=== PATIENT | female | born 1955 | race Caucasian/White ===

== ENCOUNTER 2020-01-17 07:44 | Outpatient (CLI) | payer OTHER, SELFPAY ==
--- NOTE | ~2020-01-17 | MR_ITS ---
EXAMINATION: MR lumbar spine wo con DATE: 01/17/2020 08:25 INDICATION: Lumbar nerve root impingement. Lumbar spondylolisthesis. TECHNIQUE: Magnetic resonance imaging (MRI) of the lumbar spine was performed without intravenous con trast. Sequences included sagittal T2-weighted FSE, sagittal T2-weighted FS FSE, sagittal T1-weighted FSE, and axial T2-weighted FSE. COMPARISON: Lumbar spine MRI 11/19/2012 FINDINGS: There is 4 degrees levocurvature of lumbar spine. There is 3 mm retrolisthesis of L2 on L3 and L3 on L4. Vertebral body heights are normal. There is moderately decreased disc height at L2-L3 a nd mildly decreased disc height at L3-L4. The distal spinal cord signal intensity is normal. The conu s medullaris is at L1. The following disc levels are specifically discussed: L1-L2: The disc is bulging. There is severe bilateral facet joint osteoarthritis. There is mild bilat eral neural foraminal stenosis. There is mild central canal stenosis. L2-L3: The disc is bulging and has an annular fissure. There is severe bilateral facet joint osteoart hritis. There is mild bilateral neural foraminal stenosis. There is mild central canal stenosis. L3-L4: The disc is bulging and has an annular fissure. There is severe bilateral facet joint osteoart hritis. There is hypertrophy of the ligamentum flavum. There is moderate bilateral neural foraminal s tenosis. There is mild central canal stenosis. L4-L5: The disc does not extend beyond the endplate margin. There is severe bilateral facet joint ost eoarthritis. There is mild bilateral neural foraminal stenosis. There is no central canal stenosis. L5-S1: The disc does not extend beyond the endplate margin. There is severe bilateral facet joint ost eoarthritis. There is mild bilateral neural foraminal stenosis. There is no central canal stenosis. IMPRESSION: 1. Moderate lumbar spondylosis, worsened from 11/19/2012. Reviewed, dictated and finalized at location A. ICATIONS SYSTEM ANALYST
== END 2020-01-17 07:45 | disposition home or self-care (01) ==
LOC: ANHIMG 07:45
PROVIDERS: PCP Registered Nurse; Visit Provider Registered Nurse
DX: M47.26 Other spondylosis with radiculopathy, lumbar region (principal); M43.19 Spondylolisthesis, multiple sites in spine; M79.604 Pain in right leg; M79.605 Pain in left leg; R29.898 Other symptoms and signs involving the musculoskeletal system
CPT/HCPCS: 72148

== ENCOUNTER 2020-05-02 09:00 | Outpatient (CLI) | payer OTHER, SELFPAY ==
--- NOTE | ~2020-05-02 | XR_ITS ---
XR_CERV2-3V_CR DATE: 05/02/2020 09:28 INDICATION: Generalized cervical pain TECHNIQUE: AP, open-mouth, lateral, swimmer views COMPARISON: 09/17/2010 cervical spine FINDINGS: C1 and C2 are normally aligned and the odontoid process is intact. There is mild anterolisthesis at C4-5. There is severe degenerative disc disease at C5-6, C6-7. There is mild anterolisthesis at C7-T1. There is degenerative change at the apophyseal joints throughout the cervical spine. Uncovertebral uriel int spurring is noted in the mid and lower cervical spine. IMPRESSION: Extensive degenerative changes of cervical spine Reviewed, dictated and finalized at Location A. Reviewed, dictated and finalized at location A.
== END 2020-05-02 09:01 | disposition home or self-care (01) ==
LOC: ANHIMG 09:07
PROVIDERS: PCP Registered Nurse; Visit Provider Nurse Practitioner
DX: M54.2 Cervicalgia (principal)
CPT/HCPCS: 72040

== ENCOUNTER 2020-09-19 12:18 | Outpatient (NON) | payer OTHER, SELFPAY ==
[2020-09-19 22:30] LABS: SARS-CoV-2 RNA PCR Negative
== END 2020-09-19 12:19 ==
PROVIDERS: PCP Registered Nurse; Visit Provider Registered Nurse
DX: Z20.828 Contact with and (suspected) exposure to other viral communicable diseases (principal); J02.9 Acute pharyngitis, unspecified; R51.9 Headache, unspecified; R43.2 Parageusia; R43.0 Anosmia
CPT/HCPCS: 87635; C9803; U0003

== ENCOUNTER 2022-03-17 00:30 | Day surgery (SDC) | payer MEDICAID, SELFPAY ==
--- NOTE | 2022-03-16 16:47 | PM.HPGS ---
History of Present Illness History of Present Illness Consent: Risks, benefits, and alternatives have been discussed and questions answered. Patient agrees to proceed with procedure. Chief complaint: family hx of colon ca Narrative: Jaclyn Combs is a 66 year old female Was referred for colon cancer screening. Two of her brothers had colon cancer Review of Systems Review of Systems: All systems reviewed & are unremarkable except as noted in HPI and below PMFSH Past Medical History Medical History Anxiety Arthritis HTN (hypertension) Hyperlipidemia Obesity MARILEE on CPAP Social History Social History Smoking status: Never smoker Alcohol intake: never Substance use: never Substance use type: does not use Living arrangements: alone Spiritual care concerns: No Meds Home Medications and Allergies Home Medications Medication Instructions Recorded Confirmed Type albuterol sulfate 1 - 2 puff INHALATION Q4-6H PRN 03/09/22 03/09/22 History alprazolam 1 mg PO TID 03/09/22 03/17/22 History duloxetine 30 mg PO DAILY 03/09/22 03/09/22 History duloxetine 60 mg PO DAILY 03/09/22 03/09/22 History lisinopril 10 mg PO DAILY 03/09/22 03/09/22 History loperamide 2 mg PO DIRECTED PRN 03/09/22 03/09/22 History ondansetron HCl 4 mg PO PRN PRN 03/09/22 03/09/22 History pravastatin 10 mg PO DAILY 03/09/22 03/09/22 History zolpidem 10 mg PO HS PRN 03/09/22 03/09/22 History Allergies Allergy/AdvReac Type Severity Reaction Status Date / Time levofloxacin Allergy Severe Anaphylaxis Verified 03/17/22 10:02 Penicillins Allergy Intermediate Rash Verified 03/17/22 10:02 Exam Const: General: alert Orientation/consciousness: patient oriented x3 Resp: Auscultation: clear to auscultation bilaterally Cardio: Rhythm: regular rhythm GI: GI Palp: Yes Soft to palpation and No Tenderness to palpation present (GI) Neuro: General: patient oriented x3 Assessment and Plan Assessment and plan (1) Colon cancer screening: Code(s): Z12.11 - Encounter for screening for malignant neoplasm of colon Status: Acute Assessment and Plan: Colonoscopy with possible biopsy or polypectomy or cautery or injection of substances.
--- NOTE | 2022-03-17 09:02 | WPDANESEPPF ---
Anes - Initial Pre Proc Eval Procedure: Operation Date: 03/17/22 11:15 Proposed Procedures p Screening Colonoscopy - Emiliano Villeda MD Date/Time: 03/17/22 09:02 Surgeon: Emiliano Villeda MD Pre Op Diagnosis: family hx of colon ca Patient Data Age: 66 Gender: F Height: 1.6 m Weight: 77 kg Allergies Allergy/AdvReac Type Severity Reaction Status Date / Time levofloxacin Allergy Severe Anaphylaxis Verified 03/17/22 10:02 Penicillins Allergy Intermediate Rash Verified 03/17/22 10:02 Home Medications Medication Instructions Recorded Confirmed Type albuterol sulfate 1 - 2 puff INHALATION Q4-6H PRN 03/09/22 03/09/22 History alprazolam 1 mg PO TID 03/09/22 03/17/22 History duloxetine 30 mg PO DAILY 03/09/22 03/09/22 History duloxetine 60 mg PO DAILY 03/09/22 03/09/22 History lisinopril 10 mg PO DAILY 03/09/22 03/09/22 History loperamide 2 mg PO DIRECTED PRN 03/09/22 03/09/22 History ondansetron HCl 4 mg PO PRN PRN 03/09/22 03/09/22 History pravastatin 10 mg PO DAILY 03/09/22 03/09/22 History zolpidem 10 mg PO HS PRN 03/09/22 03/09/22 History Patient hx anesthesia problems: none Family hx anesthesia problems: none Results Review: All pre-operative results and documents have been reviewed as part of the pre-operative evaluation. [facility] [place] Past Medical History Medical History Anxiety Arthritis HTN (hypertension) Hyperlipidemia Obesity MARILEE on CPAP Social History Social History Smoking status: Never smoker Alcohol intake: never Substance use: never Substance use type: does not use Living arrangements: alone Spiritual care concerns: No Anes - Eval Final PreProcedure Day of Procedure 03/17/22 09:02 Patient weight: obese Heart: regular rate and rhythm Lungs: clear to auscultation and normal air movement Airway: Mallampati scale class II Neurological: alert and oriented Last oral intake: >/= 8 hours ASA classification: III Emergent: no Anesthetic plan: proceed Anesthesia type and monitoring: general GIVS Results Review: All pre-operative results and documents have been reviewed as part of the pre-operative evaluation. Informed Consent: The patient's anesthetic plan and its attendant risks and benefits were discussed with the patient/family/POA. Questions were solicited and answers provided to the satisfaction of the patient/family/POA.
[2022-03-17 10:04] VITALS: BP 123/75; PULSE 89; RESP 18; TEMP 36.8; O2SAT 98
[2022-03-17] MEDS: LACTATED RINGERS 1,000 ML 150 ML IV CONT (10:14)
[2022-03-17 10:53] VITALS: BP 107/69; PULSE 72; RESP 16; O2SAT 99
[2022-03-17 11:03] VITALS: BP 118/61; PULSE 78; RESP 19; O2SAT 99
[2022-03-17 11:13] VITALS: BP 146/93; PULSE 74; RESP 17; O2SAT 99
== END 2022-03-17 11:23 | disposition home or self-care (01) ==
PROVIDERS: PCP Registered Nurse; Visit Provider Internal Medicine Gastroenterology
PROC: 0DJD8ZZ Inspection of Lower Intestinal Tract, Via Natural or Artificial Opening Endoscopic (ICD-10-PCS; CPT 45378; principal; 2022-03-17 11:15)
DX: Z12.11 Encounter for screening for malignant neoplasm of colon (principal); K64.8 Other hemorrhoids; Z80.0 Family history of malignant neoplasm of digestive organs; I10 Essential (primary) hypertension; E78.5 Hyperlipidemia, unspecified; G47.33 Obstructive sleep apnea (adult) (pediatric); F41.9 Anxiety disorder, unspecified; E66.9 Obesity, unspecified; Z68.31 Body mass index [BMI] 31.0-31.9, adult; Z79.51 Long term (current) use of inhaled steroids
CPT/HCPCS: 45380; 88305; J2704; J7120

== ENCOUNTER 2022-03-29 11:05 | Emergency (ER) | payer MEDICAID, SELFPAY ==
--- NOTE | ~2022-03-29 | XR_ITS ---
EXAMINATION: XR knee RT min 4V DATE: 03/29/2022 11:43 INDICATION: Right knee instability and pain TECHNIQUE: Four views of the right knee were obtained. COMPARISON: None. FINDINGS: Alignment is normal. No fracture or osteochondral lesion. There is moderate tricompartmenta l osteoarthritis. A small joint effusion is present. Soft tissues are unremarkable. IMPRESSION: 1. Moderate osteoarthritis without acute osseous abnormality. Reviewed, dictated and finalized at location A.
[2022-03-29 11:19] VITALS: BP 135/85; PULSE 86; RESP 18; TEMP 36.8; O2SAT 100
--- NOTE | 2022-03-29 11:19 | ED.EXTPRO ---
HPI - Extremity Problem General Chief complaint: Extremity Injury, Lower Stated complaint: Right leg Pain Time Seen by Provider: 03/29/22 11:19 Source: patient, RN notes reviewed and old records reviewed Mode of arrival: ambulatory Limitations: no limitations History of Present Illness HPI Narrative: 66-year-old female presents to [facility] with complaints of right knee pain and swelling for several weeks. States she has not been able to make an appointment with her primary or Ortho due to personal issues. Patient had her left knee replaced several years ago. No treatment prior to arrival. States her knee keeps giving out. Head gave out twice yesterday once landing on the bed and wants landing against a counter. Normally does not have to use a cane. Related Data Home Medications Medication Instructions Recorded Confirmed alprazolam 1 mg PO TID 03/09/22 03/29/22 duloxetine 30 mg PO DAILY 03/09/22 03/29/22 duloxetine 60 mg PO DAILY 03/09/22 03/29/22 lisinopril 10 mg PO DAILY 03/09/22 03/29/22 ondansetron HCl 4 mg PO PRN PRN 03/09/22 03/29/22 pravastatin 10 mg PO DAILY 03/09/22 03/29/22 zolpidem 10 mg PO HS PRN 03/09/22 03/29/22 Allergies Allergy/AdvReac Type Severity Reaction Status Date / Time levofloxacin Allergy Severe Anaphylaxis Verified 03/29/22 11:52 Penicillins Allergy Intermediate Rash Verified 03/29/22 11:52 Review of Systems Review of Systems: All systems reviewed & are unremarkable except as noted in HPI and below Constitutional: Constitutional: Reports no additional constitutional complaints, Denies chills and Denies fever(s) Eyes: Eyes: Reports no additional eye complaints ENT: Reports system reviewed and no additional complaints, except as documented Cardiovascular: Cardiovascular: Reports no additional cardiovascular complaints Respiratory: Respiratory: Reports no additional respiratory complaints Musculoskeletal: Musculoskeletal: Reports as per HPI, Reports abnormal gait (Limp), Reports arthralgias (Right knee), Reports joint swelling (Right knee) and Reports stiffness Integumentary/Breasts: Skin/Breast: Reports system reviewed and no additional complaints, except as docu Neurologic: Reports system reviewed and no additional complaints, except as documented Psychiatric: Psychiatric: Reports no additional psychiatric complaints Allergic/Immunologic: Allergic/Immunologic: Reports no additional allergic/immunologic complaints PMFSH Past Medical History Medical History (Updated 03/29/22 @ 11:54 by Roseline Gastleum APRN) Anxiety Arthritis HTN (hypertension) Hyperlipidemia Obesity MARILEE on CPAP Surgical History Surgical History (Updated 03/29/22 @ 19:03 by Roseline Gastelum APRN) History of left knee replacement Social History Social History Smoking status: Never smoker Alcohol intake: never Substance use: never Substance use type: does not use Spiritual care concerns: No Comments At the time of my signature, I reviewed and agree with the nursing past medical, surgical, social, and family history. There is no relevant family history pertinent to the patient complaint. Exam Const: General: cooperative, no acute distress, alert and ill appearing chronically Nutritional Appearance: well nourished Orientation/consciousness: patient oriented x3 Limitations: no limitations HENMT: Head: normal to inspection Ears: external ears normal Eyes: Pupils: Equal, round and reactive pupils present Neck: Neck: normal visual inspection, no lymphadenopathy and no meningeal signs Chest: Chest palpation & inspection: normal inspection of the chest Resp: Effort & Inspection: normal respiratory effort Auscultation: clear to auscultation bilaterally Cardio: Rate: regular rate Rhythm: regular rhythm : General: Yes no CVA tenderness Back/Spine/Pelvis: Back: no CVA tenderness Skin: General skin exam: normal color Rashe
== END 2022-03-29 12:00 | disposition home or self-care (01) ==
PROVIDERS: Emergency Provider Nurse Practitioner; PCP Registered Nurse
DX: M25.461 Effusion, right knee (principal); M17.11 Unilateral primary osteoarthritis, right knee; I10 Essential (primary) hypertension; E78.5 Hyperlipidemia, unspecified
CPT/HCPCS: 73564; 99213; G0463

== ENCOUNTER 2022-04-25 10:42 | Outpatient (CLI) | payer MEDICAID, SELFPAY ==
--- NOTE | ~2022-04-25 | MR_ITS ---
EXAMINATION: MR lumbar spine wo con DATE: 04/25/2022 11:44 INDICATION: Right leg weakness. TECHNIQUE: Magnetic resonance imaging (MRI) of the lumbar spine was performed without intravenous con trast. Sequences included sagittal T2-weighted FSE, sagittal T2-weighted FS FSE, sagittal T1-weighted FSE, and axial T2-weighted FSE. COMPARISON: Lumbar spine MRI 01/17/2020 FINDINGS: There is 3 mm retrolisthesis of L2 on L3 and L3 on L4. Vertebral body heights are normal. T here is moderately decreased disc height at L2-L3 and L3-L4. There is ligamentum flavum hypertrophy a t the disc levels from L1-L2 through L4-L5. The distal spinal cord signal intensity is normal. The co nus medullaris is at T12-L1. The following disc levels are specifically discussed: L1-L2: The disc is bulging. There is severe bilateral facet joint osteoarthritis. There is mild bilat eral neural foraminal stenosis. There is mild central canal stenosis. L2-L3: The disc is bulging. There is severe bilateral facet joint osteoarthritis. There is mild bilat eral neural foraminal stenosis. There is mild central canal stenosis. L3-L4: The disc is bulging and has an annular fissure. There is severe bilateral facet joint osteoart hritis. There is moderate bilateral neural foraminal stenosis. There is mild central canal stenosis. L4-L5: The disc does not extend beyond the endplate margin. There is severe bilateral facet joint ost eoarthritis. There is mild left neural foraminal stenosis. There is no central canal stenosis. L5-S1: The disc does not extend beyond the endplate margin. There is severe bilateral facet joint ost eoarthritis. There is mild bilateral neural foraminal stenosis. There is no central canal stenosis. IMPRESSION: 1. Moderate lumbar spondylosis, stable from 01/17/2020. Reviewed, dictated and finalized at location A.
== END 2022-04-25 10:43 | disposition home or self-care (01) ==
PROVIDERS: PCP Registered Nurse; Visit Provider Registered Nurse
DX: R20.2 Paresthesia of skin (principal); M47.817 Spondylosis without myelopathy or radiculopathy, lumbosacral region; M48.07 Spinal stenosis, lumbosacral region; R29.898 Other symptoms and signs involving the musculoskeletal system; M48.061 Spinal stenosis, lumbar region without neurogenic claudication
CPT/HCPCS: 72148

== ENCOUNTER 2023-02-09 07:23 | Observation (INO) | payer MEDICARE, MEDICAID, SELFPAY ==
[2023-02-09] VITALS (16 sets, daily range): BP systolic 122–157; BP diastolic 55–85; PULSE 64–91; RESP 12–24; TEMP 36.4; O2SAT 84–100; BMI 36.3
--- NOTE | 2023-02-09 | ECHO_ITS ---
Patient Info Name: Jaclyn Combs Age: 67 years : 1955 Gender: Female Ht: 62 in Wt: 198 lbs BSA: 2.03 m2 HR: 81 bpm BP: 122 / 55 mmHg Heart Rhythm: Sinus Rhythm Technical Quality: Fair Exam Date: 02/09/2023 1:31 PM [facility] Room: [facility] Patient Status: Inpatient Admit Date: 02/09/2023 Staff Ordering Physician: Christine Mccollum NP Manufacturing Quality Engineer: Muriel Munoz RDCS Attending Provider: Michael Dutton MD Referring Physician: Chun ISAAC; Exam Type: CA echo doppler color flow Study Info Indications - CHEST PAIN Complete two-dimensional, color flow and Doppler transthoracic echocardiogram is performed. Summary 1. Complete two-dimensional, color flow and Doppler transthoracic echocardiogram is performed. 2. Left ventricular chamber dimension is normal. 3. Left ventricular systolic function is normal, estimated at 65-70%. 4. There is mildly increased left ventricular wall thickness. 5. The left ventricular diastolic function is grade I diastolic dysfunction. 6. Right ventricular systolic function is normal. 7. There is mild aortic atherosclerosis. 8. No significant valvular disease. Left Ventricle Left ventricular chamber dimension is normal. Left ventricular systolic function is normal, estimated at 65-70%. There is mildly increased left ventricular wall thickness. The left ventricular diastolic function is grade I diastolic dysfunction. Global longitudinal strain is normal at -19 %. Right Ventricle Right ventricular chamber dimension is normal. Right ventricular systolic function is normal. Left Atria Left atrial chamber dimension is normal. Right Atria Right atrial chamber dimension is normal. Atrial Septum Intact interatrial septum visualized by color flow imaging. Aortic Valve The aortic valve is trileaflet. There is mild aortic valve sclerosis. There is no aortic valve stenosis. There is no aortic valve regurgitation. Pulmonic Valve The pulmonic valve is not well visualized. Mitral Valve The mitral valve has normal leaflets. There is no mitral valve stenosis. There is trace mitral valve regurgitation. Tricuspid Valve There is no significant tricuspid valve stenosis. There is trace tricuspid valve regurgitation. Pericardium/Pleural The pericardium appears epicardial fat pad. There is no pericardial effusion. Inferior Vena Cava Normal inferior vena cava with >50% collapse upon inspiration consistent with normal right atrial pressure, 3 mmHg. Aorta The aortic root size at the sinus of Valsalva is normal. There is mild aortic atherosclerosis. Left Ventricular Outflow Tract Name Value Normal LVOT 2D LVOT Diameter 2.0 cm LVOT Doppler LVOT Peak Gradient 4 mmHg LVOT Mean Gradient 3 mmHg LVOT VTI 22 cm LVOT VTI/AV VTI Ratio 0.8 LVOT Stroke Volume 69 ml LVOT CO 14.9 l/min LVOT CI 7.3 l/min/
--- NOTE | ~2023-02-09 | NM_ITS ---
EXAMINATION: NM pulmonary perfusion DATE: 02/10/2023 14:38 INDICATION: Chest pain. Elevated d-dimer. TECHNIQUE: Senior Data Analyst scintigraphic images of the chest were obtained in anterior and posterior projection s to assess residual activity from a cardiac stress perfusion study performed one day prior. 5.3 mCi Tc-99m MAA was administered by intravenous route. Scintigraphic images of the chest were obtained. COMPARISON: None FINDINGS: There is some residual activity scattered throughout the colon in the visualized upper abdomen. There is relatively homogeneous perfusion throughout the lungs. No perfusion defects identified. IMPRESSION: 1. Normal perfusion imaging of the lungs. Low probability for pulmonary embolism. Reviewed, dictated and finalized at location L. IMPRESSION: 1. Normal perfusion imaging of the lungs. Low probability for pulmonary emboli sm.
--- NOTE | ~2023-02-09 | NM_ITS ---
EXAMINATION: NM saji stress w perfusion DATE: 02/09/2023 16:12 INDICATION: Chest pain. TECHNIQUE: Rest images were obtained following intravenous administration of 10.5 mCi Tc99m tetrofosm in (Myoview). The patient was infused intravenously with Lexiscan (regadenoson). Then, 33.9 mCi Tc99m tetrofosmin (Myoview) was administered intravenously, and stress images were obtained. Data was [place] nstructed into short axis and horizontal and vertical long axis SPECT images. Gated SPECT images were also obtained. COMPARISON: Myocardial perfusion imaging 09/17/2010 FINDINGS: There is no definite reversible or fixed perfusion abnormality to suggest ischemia or infar ction. There is no segmental wall motion abnormality. Left ventricular ejection fraction measures > 70%. IMPRESSION: 1. No definite ischemia or infarct. 2. Normal left ventricular ejection fraction measuring >70%. Reviewed, dictated and finalized at location A.
--- NOTE | ~2023-02-09 | XR_ITS ---
Clinical Indication: Pain PA and lateral views of the chest: Comparison: 04/25/2019 Findings: The lungs are clear, without evidence of focal consolidation or pleural effusion. Cardiome diastinal silhouette is within normal limits. DISH of the spine again noted. Impression: Clear lungs. Reviewed, dictated and finalized at location . Impression: Clear lungs.
--- NOTE | ~2023-02-09 | US_ITS ---
EXAMINATION:US venous doppler LE BI INDICATION:Leg pain. Elevated d-dimer. TECHNIQUE: Multiple grayscale, color flow and Doppler images of the bilateral lower extremity deep ve nous systems were obtained and reviewed. COMPARISON:No prior studies for comparison. FINDINGS: The common femoral, superficial femoral and popliteal veins demonstrate normal respiratory variation, augmentation and compressibility. Color flow is also seen within the posterior tibial, pe roneal, greater saphenous and profunda veins. IMPRESSION: 1: No lower extremity deep venous thrombosis. Reviewed, dictated and finalized at location A.
--- NOTE | ~2023-02-09 | CT_ITS ---
EXAMINATION: CT brain wo con DATE: 02/11/2023 13:22 INDICATION: Headache. Dizziness. TECHNIQUE: Computed tomography (CT) of the head was performed without intravenous contrast. The mA wa s adjusted according to patient size. Iterative reconstruction technique was employed. The dose-lengt h product was 605.33 mGy-cm. COMPARISON: Head CT 03/10/2016 FINDINGS: There are scattered areas of low attenuation in the cerebral white matter. There is no intr acranial hemorrhage, acute infarction, or abnormal intracranial mass lesion. The ventricles are rosemary l in size. There is mild mucosal thickening in the paranasal sinuses. The mastoid air cells are rosemary l. The orbits are normal. IMPRESSION: 1. Worsened mild nonspecific cerebral white matter disease, which likely represents chronic small ves dom ischemic disease. Reviewed, dictated and finalized at location A. IMPRESSION: 1. Worsened mild nonspecific cerebral white matter disease, which likely repres ents chronic small vessel ischemic disease.
--- NOTE | ~2023-02-09 | CT_ITS ---
EXAMINATION: CT abdomen pelvis wo con DATE: 02/10/2023 14:39 INDICATION: Abdominal pain TECHNIQUE: Computed tomography (CT) of the abdomen and pelvis was performed without intravenous contr ast. Automated exposure control and iterative reconstruction technique were employed. The dose-length product was 539.20 mGy-cm. COMPARISON: 07/25/2019 FINDINGS: Minimal atelectasis at the bilateral lung bases. Heart size is normal. No pericardial or pleural effu manjit. Cholecystectomy clips the gallbladder fossa. Liver, spleen, pancreas, bilateral adrenal glands and right kidney are normal. 2.5 cm left renal cyst. Anatomic variant accessory right renal artery an d retroaortic left renal vein. Bowels are normal with no abnormal wall thickening or obstruction. Pos toperative changes at the tip the cecum consistent with prior appendectomy. A few phleboliths in the pelvis. Bladder is normal. The uterus is not identified and has likely been surgically resected. No f ree intraperitoneal gas or fluid. No pathologically enlarged abdominal or pelvic lymphadenopathy. Mil d to moderate lumbar spondylosis. IMPRESSION: 1. No acute intra-abdominal/pelvic process. Reviewed, dictated and finalized at location L.
--- NOTE | 2023-02-09 07:36 | ECG_ITS ---
Measurements Intervals [place] Rate: 91 P: 66 RI: 183 QRS: -42 QRSD: 64 T: 52 QT: 329 QTc: 406 Interpretive Statements SINUS RHYTHM LEFT AXIS DEVIATION BASELINE ARTIFACT- I, II, III, AVR, AVL, AVF, V1-V6 BORDERLINE ECG NO PREVIOUS ECG AVAILABLE FOR COMPARISON Electronically Signed On 02-09-2023 9:42:00 CDT by Jean-Claude Chong D.O.
--- NOTE | 2023-02-09 07:44 | ED.CHESTPAIN ---
HPI - Chest Pain General Chief Complaint: Chest Pain Stated Complaint: chest pressure Time Seen by Provider: 02/09/23 07:24 History of Present Illness HPI narrative: Patient is a 67-year-old female who presents to the ER with chest pain. Central. Aching. Reports has been ongoing over the last 2 months. She is also developed extreme dyspnea with exertion. No history of COPD or lung disease. Chest pain also worsens with exertion and improves with rest. Patient reports she gets radiation of the discomfort into her right shoulder as well as into her left neck. She is also gotten some intermittent tingling in her left arm. Patient also reports she has had some new sinus congestion with postnasal drip and hoarseness of her voice. No history of NH. Related Data Home Medications Medication Instructions Recorded Confirmed alprazolam 1 mg tablet 1 mg PO TID 03/09/22 02/09/23 duloxetine 30 mg capsule,delayed 30 mg PO DAILY 03/09/22 02/09/23 release duloxetine 60 mg capsule,delayed 60 mg PO DAILY 03/09/22 02/09/23 release lisinopril 10 mg tablet 10 mg PO DAILY 03/09/22 02/09/23 ondansetron HCl 4 mg tablet 4 mg PO Q6H PRN Nausea 03/09/22 02/09/23 pravastatin 10 mg tablet 10 mg PO DAILY 03/09/22 02/09/23 zolpidem 10 mg tablet 10 mg PO HS PRN Insomnia 03/09/22 02/09/23 albuterol sulfate 90 mcg/actuation 2 puff inhalation TID 02/09/23 02/09/23 aerosol inhaler gabapentin 100 mg capsule 100 mg PO TID 02/09/23 02/09/23 Allergies Allergy/AdvReac Type Severity Reaction Status Date / Time levofloxacin Allergy Severe Anaphylaxis Verified 02/09/23 13:08 Penicillins Allergy Intermediate Rash Verified 02/09/23 13:08 Review of Systems Review of Systems: All systems reviewed & are unremarkable except as noted in HPI and below Constitutional: Constitutional: Denies chills, Denies fatigue and Denies fever(s) ENT: Denies nasal congestion and Denies sore throat Cardiovascular: Cardiovascular: Reports chest pain, Denies rapid heart rate and Reports radiating jaw, neck or arm pain Respiratory: Respiratory: Reports cough, Reports dyspnea and Denies wheezing Gastrointestinal: Gastrointestinal: Denies abdominal pain, Denies nausea and Denies vomiting Genitourinary: Genitourinary: Denies nocturia and Denies dysuria [facility] Past Medical History Medical History (Updated 02/09/23 @ 18:12 by Anders Christensen MD) Anxiety Arthritis History of CVA (cerebrovascular accident) History of diverticulitis HTN (hypertension) Hyperlipidemia Obesity MARILEE on CPAP TIA (transient ischemic attack) Surgical History Surgical History (Updated 02/09/23 @ 12:26 by Christine Mccollum NP) H/O repair of rotator cuff tommy History of appendectomy History of left knee replacement History of partial hysterectomy History of total right knee replacement Hx of cholecystectomy S/P tonsillectomy and adenoidectomy Family History Family History Father Aneurysm Heart disease Mother Hypertension Cerebrovascular accident Alzheimer's dementia Sibling Carcinoma of colon 2 brothers Cervical cancer Sister Social History Social History (Updated 02/09/23 @ 14:17 by Christine Mccollum NP) Social History: She 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 Code status full code Smoking packs per day: 2 Smoking cigarettes per day: 40.0 Years smoked: 9 Smoking pack-years: 18.00 Smoking status: Former smoker Tobacco type: cigarettes Second hand tobacco smoke exposure: No Smoking end date: 11/28/74 Alcohol intake: never Substance use: never Substance use type: does not use Lack of Transportation: No Lack of Food: Sometimes True Current Housing: I Have Housing Concerned About Future Housing: No Difficulty Paying Gas/Electric Bills: No Difficulty Paying for Meds: No Currently Unemployed:
[2023-02-09 08:25] LABS: Basophils Percent Auto 0.5 % (0.2-1.2); Eosinophils Absolute Auto 0.2 K/mm3 (0-0.3); Eosinophils Percent Auto 2.3 % (0-4.4); Hematocrit 41.1 % (37.0-47.0); Hemoglobin 13.2 g/dL (12.0-15.0); Immature Granulocyte Absolute 0.02 K/mm3 (0.00-0.031); Immature Granulocyte Percent A 0.2 % (0-0.5); Lymphocytes Absolute Auto 4.02 K/mm3 (0.9-3.2); Lymphocytes Percent Auto 46.7 % (18.3-44.2); Mean Corpuscular HGB Conc 32.1 g/dl (32-36); Mean Corpuscular Hemoglobin 28.3 pg (26-34); Mean Corpuscular Volume 88.2 fl (80-100); Mean Platelet Volume 9.3 fl (7.4-10.4); Monocytes Absolute Auto 0.7 K/mm3 (0.1-0.6); Monocytes Percent Auto 7.9 % (2.6-8.5); Neutrophils Absolute Auto 3.6 K/mm3 (1.3-6.7); Neutrophils Percent Auto 42.4 % (45.5-73.1); Platelet Count Result 298 k/mm3 (150-375); Red Blood Count 4.66 M/mm3 (4.2-5.4); Red Cell Distribution Width 15.1 % (11.5-14.5); White Blood Count 8.6 K/mm3 (4.5-10.0)
[2023-02-09 08:40] LABS: Alanine Aminotransferase 19 U/L (6-35); Albumin Level 4.4 g/dL (3.5-5.1); Alkaline Phosphatase 87 U/L (38-126); Anion Gap 7 mmol/L (8-16); Aspartate Amino Transferase 22 U/L (14-36); Bilirubin,Total 0.6 mg/dL (0.2-1.3); Blood Urea Nitrogen 13 mg/dL (7-17); Calcium 8.9 mg/dL (8.4-10.2); Carbon Dioxide 25 mmol/L (22-30); Chloride 103 mmol/L (98-107); Estimated CRCL calculation 80 ml/min; Estimated Glomerular Filt Rate > 60; Glucose 96 mg/dL (65-110); Lipase 78 U/L (23-300); Potassium 4.1 mmol/L (3.4-5.0); Sodium 135 mmol/L (137-145)
[2023-02-09 08:45] LABS: Prothrombin Time 12.8 Seconds (11.1-14.7)
[2023-02-09 08:46] LABS: Partial Thromboplastin Time 27.7 SECONDS (22.3-36.8)
[2023-02-09 08:51] LABS: Troponin I < 0.012 ng/mL (0.000-0.034)
[2023-02-09] MEDS: ONDANSETRON INJ 4 MG/2 ML VIAL IV PUSH (09:58)
[2023-02-09 11:11] LABS: Troponin I < 0.012 ng/mL (0.000-0.034)
--- NOTE | 2023-02-09 11:21 | PC.NURSE ---
report received from Cindy LLOYD including history and physical and plan of care
--- NOTE | 2023-02-09 12:22 | PM.IMHP ---
H&P: HPI History of Present Illness Date/Time: 02/09/23 12:22 Chief Complaint: Chest pain Narrative: This is a 67-year-old female patient who is complaining of having chest pain. She stated was epigastric and went under both of her breast and radiated to her left neck and right arm. This has been ongoing for the last 2 months. The patient has had some anxiety she recently lost her . Patient has had extreme dyspnea with exertion. Her chest pain is worse with exertion and improves with rest. The patient has not taken any medication for this and has not had any previous history of myocardial infarctions. EKG was interpreted as normal rate 91 sinus rhythm, normal QRS, normal QT and left axis. She was given aspirin and Zofran in the emergency room. Chest x-ray was read as clear lungs. Troponin x2 nonreactive. The patient is being admitted to observation status on that 02/09/2023. Review of Systems Review of Systems: All systems reviewed & are unremarkable except as noted in HPI and below Constitutional: Constitutional: Reports as per HPI and Reports no additional constitutional complaints Eyes: Eyes: Reports as per HPI and Reports no additional eye complaints ENT: Reports system reviewed and no additional complaints, except as documented and Reports Normal hearing present Cardiovascular: Cardiovascular: Reports no additional cardiovascular complaints Respiratory: Respiratory: Reports no additional respiratory complaints and Reports no additional respiratory complaints Gastrointestinal: Gastrointestinal: Reports as per HPI and Reports no additional gastrointestinal complaints Musculoskeletal: Musculoskeletal: Reports no additional musculoskeletal complaints Integumentary/Breasts: Skin/Breast: Reports system reviewed and no additional complaints, except as docu and Reports as per HPI Neurologic: Reports system reviewed and no additional complaints, except as documented, Reports as per HPI and Reports Normal hearing present Psychiatric: Psychiatric: Reports no additional psychiatric complaints and Reports as per HPI Endocrine: Endocrine: Reports no additional endocrine complaints Hematologic/Lymphatic: Hematologic/Lymphatic: Reports no additional hematologic/lymphatic complaints Allergic/Immunologic: Allergic/Immunologic: Reports no additional allergic/immunologic complaints [facility] Past Medical History Medical History (Updated 02/09/23 @ 14:22 by Christine Mccollum NP) Anxiety Arthritis History of CVA (cerebrovascular accident) History of diverticulitis HTN (hypertension) Hyperlipidemia Obesity MARILEE on CPAP TIA (transient ischemic attack) Surgical History Surgical History (Updated 02/09/23 @ 12:26 by Christine Mccollum NP) H/O repair of rotator cuff tommy History of appendectomy History of left knee replacement History of partial hysterectomy History of total right knee replacement Hx of cholecystectomy S/P tonsillectomy and adenoidectomy Family History Family History (Updated 02/09/23 @ 14:15 by Christine Mccollum NP) Father Aneurysm Heart disease Mother Hypertension Cerebrovascular accident Alzheimer's dementia Sibling Carcinoma of colon 2 brothers Cervical cancer Sister Social History Social History (Updated 02/09/23 @ 14:17 by Christine Mccollum NP) Social History: She 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 Code status full code Smoking packs per day: 2 Smoking cigarettes per day: 40.0 Years smoked: 9 Smoking pack-years: 18.00 Smoking status: Former smoker Tobacco type: cigarettes Second hand tobacco smoke exposure: No Smoking end date: 11/28/74 Alcohol intake: never Substance use: never Substance use type: does not use Lack of Transportation: No Lack of Food: Sometimes True Current Housing: I Have Housing Concerned About Future Housing: No Difficulty Paying G
--- NOTE | 2023-02-09 12:27 | EST_ITS ---
Patient Info Name: Jaclyn Combs Age: 67 years : 1955 Gender: Female Ht: 62 in Wt: 198 lbs BSA: 2.03 m2 HR: 81 bpm BP: 161 / 84 mmHg Heart Rhythm: Sinus Rhythm Exam Date: 02/09/2023 3:12 PM Exam Location: [facility] Stress Patient Status: Inpatient Admit Date: 02/09/2023 Staff Ordering Physician: Christine Mccollum NP Attending Provider: dr caceres Exercise Technologist: Marzena Vasquez CT Exercise Physician: Jaqueline Caceres MD Exam Type: CA stress saji w NM Study Info Indications R07.9 - Chest pain, unspecified A regadenoson stress test was performed. Summary 1. No abnormal ST/T wave changes diagnostic of ischemia with Lexiscan. 2. Occasional PVCs. 3. Please correlate with nuclear medicine images, reported separately. Protocol: Lexiscan Stress ECG Details Stage: REST Duration (min): 1 min : 6 sec HR (bpm): 78 SBP (mmHg): 161 DBP (mmHg): 84 Stage: REST Duration (min): 6 min : 39 sec HR (bpm): 82 SBP (mmHg): 161 DBP (mmHg): 84 Stage: STAGE 1 Duration (min): 0 min : 59 sec HR (bpm): 104 SBP (mmHg): 161 DBP (mmHg): 84 Stage: RECOVERY Duration (min): 1 min : 0 sec HR (bpm): 101 SBP (mmHg): 146 DBP (mmHg): 74 Stage: RECOVERY Duration (min): 2 min : 0 sec HR (bpm): 92 SBP (mmHg): 146 DBP (mmHg): 74 Stage: RECOVERY Duration (min): 3 min : 0 sec HR (bpm): 89 SBP (mmHg): 121 DBP (mmHg): 72 Stage: RECOVERY Duration (min): 3 min : 11 sec HR (bpm): 84 SBP (mmHg): 121 DBP (mmHg): 72 Rest HR: 82 bpm Peak HR: 107 bpm Rest Sys BP: 161 mmHg Peak Sys BP: 146 mmHg Max Pred HR: 152 bpm % Max Pred HR: 70 % Target HR: 129 bpm Max RPP: 15,622 bpm*mmHg Total Time: 1 min : 0 sec Rest Avila BP: 84 mmHg Peak Avila BP: 74 mmHg Total Dose: 0.4 mg Resting ECG Sinus rhythm. Stress ECG Sinus tachycardia. No abnormal ST/T wave changes diagnostic of ischemia with Lexiscan. Arrhythmias Occasional PVCs. Report Signatures
--- NOTE | 2023-02-09 13:25 | PC.NURSE ---
community planning technician at bedside performing echo.
--- NOTE | 2023-02-09 13:55 | PC.NURSE ---
Report given to GABINO Lieberman.
--- NOTE | 2023-02-09 14:07 | ADMGEN ---
This patient, Jaclyn Combs, was admitted to [facility] Patient/family oriented to hospital policies and general routines including ID bracelet, bed and alarms, visiting hours, pain management, procedures, bathroom and other care routines, personal items, smoking policy, room service/diet, and visiting hours. Information on how to activate the Rapid Response Team has been discussed. Patient/Family are encouraged to report perceived risks to care and to ask questions if they do not understand what they are told or what they should do.
[2023-02-09] MEDS: HYDROcodone/acetaminophen (*CRX) 5-325 MG TABLET 1 TAB PO ×2 (14:23→22:27)
[2023-02-09] MEDS: GABAPENTIN 100 MG CAPSULE PO (16:34)
[2023-02-09] MEDS: ALPRAZolam (*CRX) 0.5 MG TABLET 1 MG PO (16:34)
--- NOTE | 2023-02-09 18:14 | ECG_ITS ---
Measurements Intervals [place] Rate: 93 P: 55 [place]: 181 QRS: -31 QRSD: 80 T: 57 QT: 345 QTc: 429 Interpretive Statements SINUS RHYTHM LEFT AXIS DEVIATION BASELINE ARTIFACT- II, AVR, V1 BORDERLINE ECG COMPARED TO ECG 02/09/2023 07:33:15 NO SIGNIFICANT CHANGES Electronically Signed On 02-09-2023 20:24:04 CDT by Jean-Claude Chong D.O.
[2023-02-09] MEDS: MORPHINE SULFATE (*CRX) 2 MG/ML INJ IV PUSH (18:20)
[2023-02-09] MEDS: BELLADONNA ALK/PHENOB ELIX 10 ML, MAG HYDROX/ALUMINUM HYD/SIMETH 30 ML, LIDOCAINE HCL 2... PO (18:32)
[2023-02-09 18:52] LABS: Troponin I < 0.012 ng/mL (0.000-0.034)
[2023-02-09] MEDS: ALBUTEROL SULFATE (*SP) AEROSOL 1 PUFF 2 PUFF INHALATION (20:20)
[2023-02-10] VITALS (11 sets, daily range): BP systolic 115–135; BP diastolic 64–74; PULSE 58–118; RESP 15–23; TEMP 36.3–36.6; O2SAT 92–100
[2023-02-10] MEDS: FAMOTIDINE 20 MG/2 ML VIAL IV PUSH ×3 (00:02→20:51)
[2023-02-10 06:36] LABS: Basophils Percent Auto 0.4 % (0.2-1.2); Eosinophils Absolute Auto 0.2 K/mm3 (0-0.3); Eosinophils Percent Auto 2.4 % (0-4.4); Hematocrit 41.8 % (37.0-47.0); Hemoglobin 13.4 g/dL (12.0-15.0); Immature Granulocyte Absolute 0.02 K/mm3 (0.00-0.031); Immature Granulocyte Percent A 0.3 % (0-0.5); Lymphocytes Absolute Auto 3.53 K/mm3 (0.9-3.2); Lymphocytes Percent Auto 52.2 % (18.3-44.2); Mean Corpuscular HGB Conc 32.1 g/dl (32-36); Mean Corpuscular Hemoglobin 29.3 pg (26-34); Mean Corpuscular Volume 91.5 fl (80-100); Mean Platelet Volume 9.2 fl (7.4-10.4); Monocytes Absolute Auto 0.5 K/mm3 (0.1-0.6); Monocytes Percent Auto 7.4 % (2.6-8.5); Neutrophils Absolute Auto 2.5 K/mm3 (1.3-6.7); Neutrophils Percent Auto 37.3 % (45.5-73.1); Platelet Count Result 272 k/mm3 (150-375); Red Blood Count 4.57 M/mm3 (4.2-5.4); Red Cell Distribution Width 15.3 % (11.5-14.5); White Blood Count 6.8 K/mm3 (4.5-10.0)
[2023-02-10 06:42] LABS: Alanine Aminotransferase 18 U/L (6-35); Alkaline Phosphatase 73 U/L (38-126); Anion Gap 2 mmol/L (8-16); Aspartate Amino Transferase 21 U/L (14-36); Bilirubin,Total 0.8 mg/dL (0.2-1.3); Blood Urea Nitrogen 12 mg/dL (7-17); Calcium 8.8 mg/dL (8.4-10.2); Carbon Dioxide 29 mmol/L (22-30); Chloride 102 mmol/L (98-107); Estimated CRCL calculation 69 ml/min; Estimated Glomerular Filt Rate > 60; Glucose 93 mg/dL (65-110); Lipase 49 U/L (23-300); Magnesium 2.3 mg/dL (1.6-2.3); Potassium 4.1 mmol/L (3.4-5.0); Sodium 133 mmol/L (137-145)
[2023-02-10 06:45] LABS: Lactic Acid Reflex 0.9 mmol/L (0.7-2.0)
[2023-02-10 07:07] LABS: D Dimer 0.68 ug/mL (<0.48)
[2023-02-10] MEDS: ALBUTEROL SULFATE (*SP) AEROSOL 1 PUFF 2 PUFF INHALATION ×3 (08:11→21:29)
[2023-02-10] MEDS: ENOXAPARIN 40 MG/0.4 ML SYRINGE SUB-Q (08:39)
[2023-02-10] MEDS: lisinopriL 10 MG TABLET PO (08:39)
[2023-02-10] MEDS: PRAVASTATIN SODIUM 10 MG TABLET PO (08:39)
[2023-02-10] MEDS: DULoxetine HCL 60 MG CAPSULE.DR PO (08:39)
[2023-02-10] MEDS: DULoxetine HCL 30 MG CAPSULE.DR PO (08:39)
[2023-02-10] MEDS: ASPIRIN 81 MG ENTERIC TABLET PO (08:39)
[2023-02-10] MEDS: GABAPENTIN 100 MG CAPSULE PO ×3 (08:39→17:06)
[2023-02-10] MEDS: ALPRAZolam (*CRX) 0.5 MG TABLET 1 MG PO ×3 (08:39→17:06)
[2023-02-10] MEDS: ONDANSETRON INJ 4 MG/2 ML VIAL IV PUSH (11:56)
[2023-02-10] MEDS: ACETAMINOPHEN 325 MG TABLET 650 MG PO (13:46)
--- NOTE | 2023-02-10 16:40 | PM.IMPN ---
Progress Note: A&P Assessment and Plan (1) Chest pain: Code(s): R07.9 - Chest pain, unspecified Status: Acute Assessment and Plan: Cardiac enzymes negative x3 An echo with EF of 60 65%, grade 1 diastolic dysfunction mild aortic atherosclerosis and no valvular disease. Stress test nuclear medicine no abnormal ST /T-wave changes diagnostic for ischemia with Lexiscan, occasional PVCs Lexiscan stress test no definite ischemia or infarct normal ventricular ejection fraction measuring greater than 70% Patient with elevated D-dimer, CTA chest could not be performed due to patient's contrast intolerance causing nausea V/Q scan low probability for PE. CT abdomen and pelvis no acute intraabdominal/pelvic process. The patient has had a lot of anxiety will continue with her anxiety medications. Patient is continuing to be symptomatic. Patient is going to be down graded from chest pain center. Will run some inflammatory labs in the morning as well as liver function,CMP, CBC, LDH and CK. (2) History of CVA (cerebrovascular accident): Code(s): Z86.73 - Personal history of transient ischemic attack (TIA), and cerebral infarction without residual deficits Status: Acute Assessment and Plan: The patient does not appear to be on aspirin or Plavix for unknown reason. I placed the patient on enteric-coated aspirin (3) Anxiety: Code(s): F41.9 - Anxiety disorder, unspecified Status: Acute Assessment and Plan: Continue with alprazolam and duloxetine (4) Hyperlipidemia: Code(s): E78.5 - Hyperlipidemia, unspecified Status: Acute Assessment and Plan: Continue with pravastatin (5) HTN (hypertension): Code(s): I10 - Essential (primary) hypertension Status: Acute Assessment and Plan: Continue with lisinopril Subjective Date/time seen: 02/10/23 16:40 Interval history: Patient is still having chest pain that she describes as very quick and sharp underneath her left breast. Patient did have elevated D-dimer today and due to vomiting with contrast patient underwent V/Q scan which had low probability for PE. Patient's troponins x3 negative, EKG no acute changes. Patient does have some nausea vomiting associated with chest pain. She denies shortness of breath, fever. She states that she has gained some weight unintentionally. Review of Systems Review of Systems: All systems reviewed & are unremarkable except as noted in HPI and below Exam Narrative: GENERAL: Comfortable, no acute distress HENMT: moist mucous membranes EYES: EOM intact b/l NECK: no lymphadenopathy RESPIRATORY: clear to auscultation CARDIO: RRR GI: soft, nontender, bowel sounds present SKIN: no rashes EXTREMITIES: no edema, redness or tenderness Objective Data Vital Signs Vital Signs: Vital Signs - 24 hr 02/09/23 18:00 02/09/23 20:21 02/09/23 20:00 Temperature 97.5 F L Pulse Rate 88 81 Respiratory Rate 20 Blood Pressure 136/82 Pulse Oximetry 97 97 Oxygen Delivery Room Air 02/09/23 20:00 02/10/23 00:00 02/10/23 00:00 Temperature 97.9 F Pulse Rate 67 Respiratory Rate 15 Blood Pressure 122/74 Pulse Oximetry 95 Oxygen Delivery Room Air Room Air 02/09/23 22:50 02/10/23 04:00 02/10/23 04:00 Temperature 97.8 F Pulse Rate 68 60 Respiratory Rate 20 Blood Pressure 135/66 Pulse Oximetry 95 98 Oxygen Delivery Autopap Room Air 02/09/23 20:00 02/10/23 06:00 02/09/23 22:00 Temperature Pulse Rate 78 61 67 Respiratory Rate Blood Pressure Pulse Oximetry Oxygen Delivery 02/10/23 00:00 02/10/23 02:00 02/10/23 04:00 Temperature Pulse Rate 68 58 L 58 L Respiratory Rate Blood Pressure Pulse Oximetry Oxygen Delivery 02/10/23 08:00 02/10/23 08:00 02/10/23 08:00 Temperature 97.3 F L Pulse Rate 70 74 Respiratory Rate 16 Blood Pressure 120/73 Pul
[2023-02-10] MEDS: ZOLPIDEM TARTRATE (*CRX) 5 MG TABLET 10 MG PO (20:51)
[2023-02-11] VITALS: BP 95/51; PULSE 95; RESP 18; TEMP 36.6; O2SAT 97
[2023-02-11 02:16] VITALS: PULSE 91; O2SAT 93
[2023-02-11 08:00] VITALS: BP 122/76; PULSE 82; RESP 16; TEMP 36.8; O2SAT 97
[2023-02-11] MEDS: FAMOTIDINE 20 MG/2 ML VIAL IV PUSH (09:13)
[2023-02-11] MEDS: PRAVASTATIN SODIUM 10 MG TABLET PO (09:13)
[2023-02-11] MEDS: ALPRAZolam (*CRX) 0.5 MG TABLET 1 MG PO ×2 (09:13→13:57)
[2023-02-11] MEDS: DULoxetine HCL 30 MG CAPSULE.DR PO (09:14)
[2023-02-11] MEDS: DULoxetine HCL 60 MG CAPSULE.DR PO (09:14)
[2023-02-11] MEDS: lisinopriL 10 MG TABLET PO (09:14)
[2023-02-11] MEDS: ASPIRIN 81 MG ENTERIC TABLET PO (09:14)
[2023-02-11] MEDS: GABAPENTIN 100 MG CAPSULE PO ×2 (09:14→13:57)
[2023-02-11] MEDS: ENOXAPARIN 40 MG/0.4 ML SYRINGE SUB-Q (09:15)
[2023-02-11] MEDS: HYDROcodone/acetaminophen (*CRX) 5-325 MG TABLET 1 TAB PO (09:22)
[2023-02-11 09:28] VITALS: O2SAT 97
[2023-02-11 09:40] VITALS: O2SAT 93
[2023-02-11] MEDS: ALBUTEROL SULFATE (*SP) AEROSOL 1 PUFF 2 PUFF INHALATION (09:40)
[2023-02-11] MEDS: PANTOPRAZOLE 40 MG TABLET PO ×2 (13:57)
[2023-02-11] MEDS: MECLIZINE HCL 12.5 MG TABLET PO (13:58)
--- NOTE | 2023-02-11 15:25 | PC.NURSE ---
RESULTS OF HEAD CT AND BLE VENOUS DOPPLERS CALLED TO [facility]. PER EDWARD, PLAN TO DISCHARGE PT. HOME. PT. IS AGREEABLE TO DISCHARGE.
--- NOTE | 2023-02-11 15:42 | PM.DS ---
DS: Admitting Diagnosis Discharge Date 02/11/23 Admitting Diagnosis chest pain DS: Discharge Diagnosis Discharge Diagnosis (1) Chest pain: Code(s): R07.9 - Chest pain, unspecified Status: Acute Assessment and Plan: Cardiac enzymes negative x3 An echo with EF of 60 65%, grade 1 diastolic dysfunction mild aortic atherosclerosis and no valvular disease. Stress test nuclear medicine no abnormal ST /T-wave changes diagnostic for ischemia with Lexiscan, occasional PVCs Lexiscan stress test no definite ischemia or infarct normal ventricular ejection fraction measuring greater than 70% Patient with elevated D-dimer, CTA chest could not be performed due to patient's contrast intolerance causing nausea V/Q scan low probability for PE. CT abdomen and pelvis no acute intraabdominal/pelvic process. The patient has had a lot of anxiety will continue with her anxiety medications. Patient is continuing to be symptomatic. Patient is going to be down graded from chest pain center. Will run some inflammatory labs in the morning as well as liver function,CMP, CBC, LDH and CK. 02/11/23 Patient's morning labs came back normal. When talking to the patient this morning she states that her chest pain is tender to palpation in she thinks it is muscle spasms. While further investigation patient says that she thinks she has memory problems and she has frequent headaches as well as muscle cramps and her legs. I ordered CT head and ultrasound of the lower extremities and both came back with no acute findings. CT did reveal chronic changes. Patient seems very anxious about why she is not feeling well I told patient that I would give her some muscle relaxers as well as anti nausea medication. I believe the most of patient's symptoms are related to muscle cramping and anxiety. Discussed course of plan with patient and she is agreeable for discharge if all Test results are negative. (2) History of CVA (cerebrovascular accident): Code(s): Z86.73 - Personal history of transient ischemic attack (TIA), and cerebral infarction without residual deficits Status: Acute Assessment and Plan: The patient does not appear to be on aspirin or Plavix for unknown reason. I placed the patient on enteric-coated aspirin (3) Anxiety: Code(s): F41.9 - Anxiety disorder, unspecified Status: Acute Assessment and Plan: Continue with alprazolam and duloxetine (4) Hyperlipidemia: Code(s): E78.5 - Hyperlipidemia, unspecified Status: Acute Assessment and Plan: Continue with pravastatin (5) HTN (hypertension): Code(s): I10 - Essential (primary) hypertension Status: Acute Assessment and Plan: Continue with lisinopril DS: Summary Hospital Course Reason for hospitalization: chest pain Hospital Course: This is a 67-year-old female history hypertension, hyperlipidemia and anxiety/ depression. Patient presented to the ED on 02/09/2023 with complaints of epigastric /chest pain that radiated to her left neck and right arm. Patient has associated nausea. Patient states that this pain has been ongoing for 2 months. Patient has having increased anxiety since the loss of her . Patient has had extreme dyspnea with exertion and chest pain is worse with exertion improves with rest. EKG with normal sinus rhythm. Patient admitted to observation. Troponin negative x3. Chest x-ray read as clear lungs. Patient given aspirin Zofran in the ED. Zofran continued once on the floor. Stress test nuclear medicine with no abnormal ST / T-wave changes diagnostic for ischemia with lid skin, occasional PVCs. The skin stress test no definite ischemia or infarct normal ventricular ejection fraction greater than 70%. Patient did have elevated D-dimer and CTA cannot performed although patient did have V/Q scan revealed low probability for PE as well as lower extremity ultr
--- NOTE | 2023-02-11 16:15 | PC.NURSE ---
discharge instruction given to patient, iv d/c tip intact. patient verbalizes understanding. all questions and concerns address. patient educated on new prescriptions sent electronically to her pharmacy to pickling machine operator. patient is calling her family to come pick her up and will let staff know when they're here to take her to the front of the hospital.
--- NOTE | 2023-02-11 16:45 | PC.NURSE ---
DISCHARGED HOME, OUT VIA WC TO [employer], WITH ALL PERSONAL BELONGINGS AND DISCHARGE PACKET. PRESCRIPTIONS HAVE BEEN TRANSMITTED TO PT'S PHARMACY. STEADY GAIT. VOICES NO C/O. NO DISTRESS NOTED.
== END 2023-02-11 16:45 | disposition home or self-care (01) ==
LOC: ANHED 10:45 → ANHCPC 02-10 10:02
PROVIDERS: Nurse Practitioner; Admitting Provider Internal Medicine; Emergency Provider Emergency Medicine; PCP Registered Nurse; Visit Provider Internal Medicine
DX: R07.9 Chest pain, unspecified (principal); Z86.73 Personal history of transient ischemic attack (TIA), and cerebral infarction without residual deficits; F41.9 Anxiety disorder, unspecified; E78.5 Hyperlipidemia, unspecified; I11.9 Hypertensive heart disease without heart failure; M25.511 Pain in right shoulder; R06.09 Other forms of dyspnea; M54.2 Cervicalgia; R20.2 Paresthesia of skin; R09.81 Nasal congestion; R90.82 White matter disease, unspecified; R49.0 Dysphonia; R10.9 Unspecified abdominal pain; R79.89 Other specified abnormal findings of blood chemistry; E66.9 Obesity, unspecified; Z68.34 Body mass index [BMI] 34.0-34.9, adult; G47.33 Obstructive sleep apnea (adult) (pediatric); Z99.89 Dependence on other enabling machines and devices; Z87.891 Personal history of nicotine dependence; Z79.51 Long term (current) use of inhaled steroids; Z79.899 Other long term (current) drug therapy; Z82.49 Family history of ischemic heart disease and other diseases of the circulatory system
CPT/HCPCS: 36415; 70450; 71046; 74176; 78452; 78580; 80053; 83605; 83690; 83735; 84443; 84484; 85025; 85380; 85610; 85730; 93005; 93017; 93306; 93970; 94640; 94660; 96372; 96374; 96375; 96376; 99285; A9270; A9502; A9540; G0378; J1650; J2270; J2405; J2785

== ENCOUNTER 2023-05-24 16:28 | Outpatient (CLI) | payer MEDICARE, MEDICAID, SELFPAY ==
--- NOTE | ~2023-05-24 | MR_ITS ---
EXAMINATION: MR brain/brain stem wo con DATE: 05/24/2023 17:13 INDICATION: Memory loss, headache and dizziness TECHNIQUE: Magnetic resonance imaging (MRI) of the brain and brainstem was performed without intraven ous contrast. Sequences included sagittal and axial T1-weighted SE, axial diffusion-weighted FS SE, a xial 3D SWAN, axial T2-weighted FLAIR, and axial T2-weighted FSE. Apparent diffusion coefficient (ADC ) maps were created. COMPARISON: None. FINDINGS: There are no areas of restricted diffusion to suggest acute infarction. No intracranial hemorrhage or abnormal intracranial mass lesion. There are scattered areas of nonspecific increased T2-weighted si gnal intensity in the cerebral white matter, predominantly involving the deep and periventricular whi te matter which is within normal limits for age and likely sequela of chronic small vessel ischemic d isease. There are no intraparenchymal signal abnormalities seen on the other pulse sequences. The ronnie tricles are symmetric and normal in size. There are no abnormal extra-axial fluid collections. Flow v oids are seen in the cerebral arteries on the T2-weighted sequences consistent with their expected pa tency. Visualized orbits and soft tissues are unremarkable. IMPRESSION: 1. No acute intracranial process. 2. Scattered calcific foci of white matter T2 hyperintensity in the deep and periventricular white ma tter which is within normal limits and likely sequela of chronic small vessel ischemic disease. Reviewed, dictated and finalized at location A. IMPRESSION: 1. No acute intracranial process. 2. Scattered calcific foci of white matter T2 hyperintensity in the deep and pe riventricular white matter which is within normal limits and likely sequela of chronic small vessel ischemic disease.
== END 2023-05-24 16:29 | disposition home or self-care (01) ==
PROVIDERS: PCP Registered Nurse; Visit Provider Registered Nurse
DX: R41.3 Other amnesia (principal); R93.0 Abnormal findings on diagnostic imaging of skull and head, not elsewhere classified
CPT/HCPCS: 70551

== ENCOUNTER 2023-08-12 09:56 | Inpatient (IN) | payer MEDICARE, MEDICAID, SELFPAY ==
[2023-08-12] VITALS (12 sets, daily range): BP systolic 113–133; BP diastolic 73–84; PULSE 70–102; RESP 16–20; TEMP 35.7–36.4; O2SAT 97–100; BMI 34.6
--- NOTE | ~2023-08-12 | US_ITS ---
EXAMINATION:US venous doppler LE BI INDICATION:Leg pain and swelling TECHNIQUE: Multiple grayscale, color flow and Doppler images of the right and left lower extremity de ep venous systems were obtained and reviewed. COMPARISON:02/11/2023 FINDINGS: The common femoral, superficial femoral and popliteal veins demonstrate normal respiratory variation, augmentation and compressibility. Color flow is also seen within the posterior tibial, pe roneal, greater saphenous and profunda veins. IMPRESSION: 1: No lower extremity deep venous thrombosis. Reviewed, dictated and finalized at location B.
--- NOTE | ~2023-08-12 | XR_ITS ---
EXAMINATION: XR chest 2V 08/12/2023 10:49 INDICATION: Chest pain PROCEDURE: 2 view chest COMPARISON: 02/09/2023 FINDINGS: The lungs are clear. The cardiomediastinal silhouette is within normal limits. There are no pleural effusions. There is no pneumothorax suspected. There is atherosclerosis of the aorta. IMPRESSION: 1: NO ACUTE CARDIOPULMONARY DISEASE. Reviewed, dictated and finalized at location B.
--- NOTE | ~2023-08-12 | CT_ITS ---
EXAMINATION: CT abdomen pelvis w con DATE: 08/12/2023 13:53 INDICATION: Abdomen pain TECHNIQUE: Computed tomography (CT) of the abdomen and pelvis was performed with 100 cc Omnipaque 350 intravenous contrast. The dose-length product was 626.81 mGy-cm. Automated exposure control and iter ative reconstruction technique were employed. COMPARISON: CT dated 02/10/2023. FINDINGS: Lung bases are unremarkable. Heart size normal. No significant pleural or pericardial effus ion. No pneumothorax. Status post cholecystectomy. There are are renal cysts, largest in the left kid izabella. The spleen, pancreas, adrenal glands are unremarkable. Small fat-containing umbilical hernia. No nobstructive bowel gas pattern. Small amount of nondependent gas in the bladder which may be due to i nstrumentation. Cystitis less favored although not excluded. Correlate clinically. Colonic diverticul osis without evidence for diverticulitis. No free air or free fluid. Moderate lumbar spondylosis with grade 1 degenerative spondylolisthesis at L4-5. IMPRESSION: 1. Small amount of nondependent gas in the bladder which may be due to instrumentation. Cystitis less favored although not excluded. Correlate clinically. Reviewed, dictated and finalized at location B. IMPRESSION: 1. Small amount of nondependent gas in the bladder which may be due to instrume ntation. Cystitis less favored although not excluded. Correlate clinically.
--- NOTE | 2023-08-12 10:08 | ECG_ITS ---
Measurements Intervals [place] Rate: 89 P: 72 [place]: 188 QRS: -44 QRSD: 78 T: 43 QT: 344 QTc: 419 Interpretive Statements SINUS RHYTHM LEFT AXIS DEVIATION PATTERN CONSISTENT WITH PULMONARY DISEASE BASELINE ARTIFACT- I, II, III, AVR, AVL, AVF, V4-V6 BORDERLINE ECG COMPARED TO ECG 02/09/2023 18:31:14 NO SIGNIFICANT CHANGES Electronically Signed On 08-12-2023 10:26:52 CDT by Jean-Claude Chong D.O.
[2023-08-12 10:26] LABS: Basophils Percent Auto 0.5 % (0.2-1.2); Eosinophils Absolute Auto 0.2 K/mm3 (0-0.3); Eosinophils Percent Auto 2.6 % (0-4.4); Hemoglobin 14.9 g/dL (12.0-15.0); Immature Granulocyte Absolute 0.02 K/mm3 (0.00-0.031); Immature Granulocyte Percent A 0.3 % (0-0.5); Lymphocytes Absolute Auto 3.41 K/mm3 (0.9-3.2); Lymphocytes Percent Auto 43.5 % (18.3-44.2); Mean Corpuscular HGB Conc 33.1 g/dl (32-36); Mean Corpuscular Hemoglobin 30.8 pg (26-34); Mean Platelet Volume 9.4 fl (7.4-10.4); Monocytes Absolute Auto 0.6 K/mm3 (0.1-0.6); Monocytes Percent Auto 7.3 % (2.6-8.5); Neutrophils Absolute Auto 3.6 K/mm3 (1.3-6.7); Neutrophils Percent Auto 45.8 % (45.5-73.1); Platelet Count Result 299 k/mm3 (150-375); Red Blood Count 4.84 M/mm3 (4.2-5.4); Red Cell Distribution Width 13.3 % (11.5-14.5); White Blood Count 7.8 K/mm3 (4.5-10.0)
[2023-08-12 10:37] LABS: INR 0.9; Prothrombin Time 12.8 Seconds (11.1-14.7)
[2023-08-12 10:38] LABS: Partial Thromboplastin Time 28.8 SECONDS (22.3-36.8)
[2023-08-12 10:53] LABS: Alanine Aminotransferase 25 U/L (6-35); Albumin Level 4.5 g/dL (3.5-5.1); Alkaline Phosphatase 65 U/L (38-126); Anion Gap 8 mmol/L (8-16); Aspartate Amino Transferase 29 U/L (14-36); Bilirubin,Total 0.7 mg/dL (0.2-1.3); Blood Urea Nitrogen 11 mg/dL (7-17); Calcium 9.6 mg/dL (8.4-10.2); Carbon Dioxide 31 mmol/L (22-30); Chloride 100 mmol/L (98-107); Estimated CRCL calculation 77 ml/min; Estimated Glomerular Filt Rate > 60; Glucose 112 mg/dL (65-110); Lipase 76 U/L (23-300); Potassium 3.5 mmol/L (3.4-5.0); Sodium 139 mmol/L (137-145)
[2023-08-12] MEDS: ASPIRIN 81 MG CHEWABLE TABLET 324 MG PO (10:54)
[2023-08-12 11:05] LABS: NT Pro B Type Natriuretic Pept < 20 pg/mL (19.9-100); Troponin I < 0.012 ng/mL (0.000-0.034)
--- NOTE | 2023-08-12 13:13 | ED.LOWEXIN ---
HPI - Extremity Injury (Lower) General Chief Complaint: Extremity Injury, Lower <Socorro Rome APRN - Last Filed: 08/12/23 17:48> Stated Complaint: Leg pain <Socorro Rome APRN - Last Filed: 08/12/23 17:48> Time Seen by Provider: 08/12/23 10:48 <Socorro Rome APRN - Last Filed: 08/12/23 17:48> Source: patient <Socorro Rome APRN - Last Filed: 08/12/23 17:48> Mode of arrival: ambulatory <Socorro Rome APRN - Last Filed: 08/12/23 17:48> Limitations: no limitations <Socorro Rome APRN - Last Filed: 08/12/23 17:48> History of Present Illness HPI Narrative: 67-year-old female history anxiety, hypertension, hyperlipidemia, obesity, obstructive sleep apnea presents today with multiple complaints. Patient complains of bilateral lower extremity pain and swelling this been going on for a while but worst over the last day or 2. Also with complaints of lower abdominal pain and cramping, chills, sweats, dysuria. Patient was just treated for UTI finished her antibiotics yesterday. Patient states she is got right flank pain. Denies any current nausea, vomiting. <Socorro Rome APRN - Last Filed: 08/12/23 17:48> Related Data Home Medications: Home Medications Medication Instructions Recorded Confirmed alprazolam 1 mg tablet 1 mg PO TID 03/09/22 08/12/23 duloxetine 30 mg capsule,delayed 90 mg PO DAILY 03/09/22 08/12/23 release lisinopril 10 mg tablet 10 mg PO DAILY 03/09/22 08/12/23 pravastatin 10 mg tablet 20 mg PO DAILY 03/09/22 08/12/23 zolpidem 10 mg tablet 10 mg PO HS PRN Insomnia 03/09/22 08/12/23 albuterol sulfate 90 mcg/actuation 2 puff inhalation PRN PRN 02/09/23 08/12/23 aerosol inhaler Shortness Of Breath Or Wheezing gabapentin 100 mg capsule 100 mg PO TID 02/09/23 08/12/23 budesonide-formoterol HFA 80 2 inh inhalation Q12H 08/12/23 08/12/23 mcg-4.5 mcg/actuation aerosol inhaler (Symbicort) ergocalciferol (vitamin D2) 1,250 1,250 mcg PO WEEKLY 08/12/23 08/12/23 mcg (50,000 unit) capsule hydrochlorothiazide 25 mg tablet 25 mg PO DAILY 08/12/23 08/12/23 <Socorro Rome APRN - Last Filed: 08/12/23 17:48> Allergies/Adverse Reactions: Allergies Allergy/AdvReac Type Severity Reaction Status Date / Time levofloxacin Allergy Severe Anaphylaxis Verified 08/12/23 17:18 Penicillins Allergy Intermediate Rash Verified 08/12/23 17:18 <Socorro Rome APRN - Last Filed: 08/12/23 17:48> Review of Systems Review of Systems: All systems reviewed & are unremarkable except as noted in HPI and below <Socorro Rome APRN - Last Filed: 08/12/23 17:48> [facility] Past Medical History Medical History: Medical History (Updated 08/12/23 @ 17:46 by Socorro Rome APRN) Anxiety Arthritis History of CVA (cerebrovascular accident) History of diverticulitis HTN (hypertension) Hyperlipidemia Obesity MARILEE on CPAP TIA (transient ischemic attack) <Socorro Rome APRN - Last Filed: 08/12/23 17:48> Surgical History Surgical History: Surgical History (Updated 02/09/23 @ 12:26 by Christine Mccollum NP) H/O repair of rotator cuff tommy History of appendectomy History of left knee replacement History of partial hysterectomy History of total right knee replacement Hx of cholecystectomy S/P tonsillectomy and adenoidectomy <Socorro Rome APRN - Last Filed: 08/12/23 17:48> Family History Family History: Family History Father Aneurysm Heart disease Mother Hypertension Cerebrovascular accident Alzheimer's dementia Sibling Carcinoma of colon 2 brothers Cervical cancer Sister <Socorro Rome APRN - Last Filed: 08/12/23 17:48> Social History Social History: Social History (Updated 02/09/23 @ 14:17 by Christine Mccollum NP) Social History: She 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 Code stat
[2023-08-12] MEDS: LACTATED RINGERS 1,000 ML 999 ML IV CONT (13:20)
[2023-08-12 13:43] LABS: Troponin I < 0.012 ng/mL (0.000-0.034)
[2023-08-12 14:22] LABS: Appearance Urine Clear (Clear); Bacteria Urine 3+ /hpf; Bilirubin Urine Negative (Negative); Color Urine Yellow (Yellow); Glucose Urine UA Negative (Negative); Ketones Urine Negative (Negative); Leukocyte Esterase Ur Negative LEU/UL (Negative); Nitrate Urine Negative (Negative); Non Pathogenic Casts 0-2; Protein Urine Negative (Negative); Specific Grav Ur 1.065 (1.001-1.035); Squamous Epithelial Cell Urine Moderate /hpf (Few); Urobilinogen Urine 0.2 mg/dL (<2.0)
[2023-08-12 14:23] LABS: Add Urine Microscopic? YES
[2023-08-12 15:41] LABS: Lactic Acid Reflex 1.4 mmol/L (0.7-2.0)
[2023-08-12 15:45] LABS: CRP < 0.5 mg/dL (<1.0)
[2023-08-12] MEDS: ACETAMINOPHEN 325 MG TABLET 650 MG PO (16:11)
[2023-08-12] MEDS: LACTATED RINGERS 1,000 ML 125 ML IV CONT (16:12)
[2023-08-12 16:37] LABS: Troponin I < 0.012 ng/mL (0.000-0.034)
--- NOTE | 2023-08-12 17:16 | ADMGEN ---
This patient, Jaclyn Combs, was admitted to 3 [facility] Surg Room 300-01. Patient/family oriented to hospital policies and general routines including ID bracelet, bed and alarms, visiting hours, pain management, procedures, bathroom and other care routines, personal items, smoking policy, room service/diet, and visiting hours. Information on how to activate the Rapid Response Team has been discussed. Patient/Family are encouraged to report perceived risks to care and to ask questions if they do not understand what they are told or what they should do.
[2023-08-12] MEDS: ACETAMINOPHEN 500 MG TABLET 1000 MG PO (20:55)
--- NOTE | 2023-08-12 21:02 | PM.IMHP ---
H&P: HPI History of Present Illness Date/Time: 08/12/23 21:02 Chief Complaint: Flank Pain, BLE Swelling Narrative: 67 y/o F presents here with worsening flank pain, chills, dysuria, BLE edema, and abdominal discomfort with PMH of RA, osteoporosis, HTN, HLD, MARILEE, and anxiety. Patient seen by her primary on Tuesday, 08/02, for dysuria. She was diagnosed with a UTI, given Macrobid course which was completed yesterday. Patient continues to have flank pain. Endorses weakness, chills, rigors, short episodes of diaphoresis, low belly pain, and 1 episode of hematuria. No other medications taken at home for symptoms beyond the antibiotic course she was prescribed. Dysuria is described as pain after urination versus pain during urination. Patient also endorses bilateral lower extremity swelling for the past week. As well as pain to lower right hernandez with small skin color change in same area to her assessment and posterior knee pain. Patient endorses right upper quadrant pain that occurs 2 to 3 times a day lasting 1-2 minutes for the past month. Also occurs at night 2-3 times and has woken her from her sleep. +abdominal bloating. Hx of cholecystectomy. Review of Systems Review of Systems: All systems reviewed & are unremarkable except as noted in HPI and below PMFSH Past Medical History Medical History (Updated 08/12/23 @ 21:20 by Jacquelyn Herman APRN) Anxiety Arthritis History of CVA (cerebrovascular accident) History of diverticulitis HTN (hypertension) Hyperlipidemia Obesity MARILEE on CPAP TIA (transient ischemic attack) Surgical History Surgical History (Updated 02/09/23 @ 12:26 by Christine Mccollum NP) H/O repair of rotator cuff tommy History of appendectomy History of left knee replacement History of partial hysterectomy History of total right knee replacement Hx of cholecystectomy S/P tonsillectomy and adenoidectomy Family History Family History Father Aneurysm Heart disease Mother Hypertension Cerebrovascular accident Alzheimer's dementia Sibling Carcinoma of colon 2 brothers Cervical cancer Sister Social History Social History (Updated 02/09/23 @ 14:17 by Christine Mccollum NP) Social History: She 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 Code status full code Smoking packs per day: 2 Smoking cigarettes per day: 40.0 Years smoked: 9 Smoking pack-years: 18.00 Smoking status: Never smoker Tobacco type: cigarettes Second hand tobacco smoke exposure: No Smoking end date: 11/28/74 Alcohol intake: never Substance use: never Substance use type: marijuana Lack of Transportation: No Lack of Food: Sometimes True Current Housing: I Have Housing Concerned About Future Housing: No Difficulty Paying Gas/Electric Bills: No Difficulty Paying for Meds: No Currently Unemployed: No Education: Grade School Difficulty w/ Childcare or Family Care: No Living arrangements: alone Spiritual care concerns: No Meds Home Medications and Allergies Home Medications Medication Instructions Recorded Confirmed Type alprazolam 1 mg tablet 1 mg PO TID 03/09/22 08/12/23 History duloxetine 30 mg capsule,delayed 90 mg PO DAILY 03/09/22 08/12/23 History release lisinopril 10 mg tablet 10 mg PO DAILY 03/09/22 08/12/23 History pravastatin 10 mg tablet 20 mg PO DAILY 03/09/22 08/12/23 History zolpidem 10 mg tablet 10 mg PO HS PRN Insomnia 03/09/22 08/12/23 History albuterol sulfate 90 mcg/actuation 2 puff inhalation PRN PRN 02/09/23 08/12/23 History aerosol inhaler Shortness Of Breath Or Wheezing gabapentin 100 mg capsule 100 mg PO TID 02/09/23 08/12/23 History ondansetron HCl 4 mg tablet 4 mg PO Q6H PRN Nausea #30 tabs 02/11/23 08/12/23 Rx budesonide-formoterol HFA 80 2 inh inhalation Q12H 08/12/23 08/12/23 History mcg-4.5 mcg/actuation ae
[2023-08-12 23:53] LABS: NT Pro B Type Natriuretic Pept < 20 pg/mL (19.9-100)
[2023-08-13 06:00] VITALS: BP 106/60; PULSE 79; RESP 16; TEMP 35.6; O2SAT 98
[2023-08-13] MEDS: ACETAMINOPHEN 500 MG TABLET 1000 MG PO ×2 (06:08→20:17)
[2023-08-13] MEDS: LACTATED RINGERS 1,000 ML 125 ML IV CONT (06:32)
[2023-08-13] MEDS: ONDANSETRON INJ 4 MG/2 ML VIAL IV PUSH ×2 (06:33→13:00)
[2023-08-13 06:47] LABS: Basophils Percent Auto 0.5 % (0.2-1.2); Eosinophils Absolute Auto 0.2 K/mm3 (0-0.3); Eosinophils Percent Auto 2.8 % (0-4.4); Hematocrit 40.5 % (37.0-47.0); Immature Granulocyte Absolute 0.02 K/mm3 (0.00-0.031); Immature Granulocyte Percent A 0.3 % (0-0.5); Lymphocytes Absolute Auto 3.69 K/mm3 (0.9-3.2); Mean Corpuscular HGB Conc 32.1 g/dl (32-36); Mean Corpuscular Hemoglobin 30.6 pg (26-34); Mean Corpuscular Volume 95.3 fl (80-100); Mean Platelet Volume 9.5 fl (7.4-10.4); Monocytes Absolute Auto 0.5 K/mm3 (0.1-0.6); Monocytes Percent Auto 7.2 % (2.6-8.5); Neutrophils Percent Auto 40.2 % (45.5-73.1); Platelet Count Result 282 k/mm3 (150-375); Red Blood Count 4.25 M/mm3 (4.2-5.4); Red Cell Distribution Width 13.2 % (11.5-14.5); White Blood Count 7.5 K/mm3 (4.5-10.0)
[2023-08-13 07:00] LABS: Anion Gap 4 mmol/L (8-16); Blood Urea Nitrogen 11 mg/dL (7-17); Calcium 8.7 mg/dL (8.4-10.2); Carbon Dioxide 31 mmol/L (22-30); Chloride 103 mmol/L (98-107); Estimated CRCL calculation 78 ml/min; Estimated Glomerular Filt Rate > 60; Glucose 95 mg/dL (65-110); Potassium 3.4 mmol/L (3.4-5.0); Sodium 138 mmol/L (137-145)
[2023-08-13 08:09] VITALS: O2SAT 97
[2023-08-13] MEDS: FLUTICASONE/SALMETEROL 45-21 MCG INHALER 1 PUFF 2 PUFF INHALATION ×2 (08:09→19:47)
[2023-08-13] MEDS: oxyCODONE HCL (*CRX) 5 MG TAB IR PO ×3 (08:27→22:02)
[2023-08-13] MEDS: DULoxetine HCL 30 MG CAPSULE.DR 90 MG PO (08:28)
[2023-08-13] MEDS: ALPRAZolam (*CRX) 0.5 MG TABLET 1 MG PO ×3 (08:28→18:51)
[2023-08-13] MEDS: hydroCHLOROthiazide 25 MG TABLET PO (08:28)
[2023-08-13] MEDS: PRAVASTATIN SODIUM 20 MG TABLET PO (08:28)
[2023-08-13] MEDS: lisinopriL 10 MG TABLET PO (08:28)
[2023-08-13] MEDS: ENOXAPARIN 40 MG/0.4 ML SYRINGE SUB-Q (08:29)
--- NOTE | 2023-08-13 09:01 | PM.IMPN ---
Progress Note: A&P Assessment and Plan (1) Flank pain: Code(s): R10.9 - Unspecified abdominal pain Status: Acute Assessment and Plan: Suprapubic abdominal pain radiating to the right flank cramping in nature. Gas noted in bladder on CT scan though patient has not undergone instrumentation recently (2) Lower extremity edema: Code(s): R60.0 - Localized edema Status: Acute (3) UTI (urinary tract infection): Qualifiers: Hematuria presence: with hematuria Urinary tract infection type: site unspecified Qualified Code(s): N39.0 - Urinary tract infection, site not specified; R31.9 - Hematuria, unspecified Code(s): N39.0 - Urinary tract infection, site not specified Status: Acute Assessment and Plan: IV Rocephin ordered. UA suggestive of UTI. Urine culture in process. (4) MARILEE on CPAP: Code(s): G47.33 - Obstructive sleep apnea (adult) (pediatric); Z99.89 - Dependence on other enabling machines and devices Status: Acute (5) HTN (hypertension): Code(s): I10 - Essential (primary) hypertension Status: Acute Assessment and Plan: Stable. Blood pressure reviewed on 08/13 (6) Anxiety: Code(s): F41.9 - Anxiety disorder, unspecified Status: Acute Assessment and Plan: patient exhibiting high anxiety. She states her mother had Alzheimer's and was complaining of bilateral leg pain then had a major stroke the next day. Since patient's bilateral legs are hurting her she is afraid that she is going to have a stroke. Time Spent With Patient Time with patient: Greater than 35 minutes Subjective Date/time seen: 08/13/23 09:01 Interval history: This is a 67-year-old female patient who reports lower abdominal cramping and pain after urination. She reports that she cannot get in to a urologist for several months and she does not know what to do about the pain. Patient reports having a prior hernia repair that was retrovaginal in the past. Patient denies chance of STD as her months ago and she has not had any other partners. She does report some vaginal discharge. CT scan shows gas in bladder, patient denies recent instrumentation. UA suggestive of UTI. Patient on IV Rocephin. 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 Review of Systems Review of Systems: All systems reviewed & are unremarkable except as noted in HPI and below Exam Narrative: GENERAL: Appears stated age, alert and oriented with minor memory problems, high anxiety HEENT: Pupils are equally round and briskly reactive to light. Extraocular muscles are intact. Oral mucous membranes are moist without lesions. NECK: The patient has no noted JVD. No adenopathy is appreciated. CHEST/LUNGS: Lungs are clear bilaterally without rhonchi, rales, or wheezes. HEART: The patient has a regular rate and rhythm. No murmurs, rubs, or gallops are appreciated. Distal pulses are 2+. No carotid bruits appreciated. ABDOMEN: The patient's abdomen is soft and nondistended. Bowel sounds are positive. Suprapubic tenderness present. EXTREMITIES: The patient has no peripheral edema. There is no focal long bone tenderness or deformity. SKIN: The patient's skin is warm and dry, without rashes or lesions. PSYCHIATRIC: The patient has normal mental status and has an Anxious affect. NEUROLOGIC: There are no gross deficits to the cranial nerves. moves all extremities well, 5/5 strength Objective Data Vital Signs Vital Signs: Vital Signs - 24 hr 08/12/23 10:02 08/12/23 13:58 08/12/23 14:00 Temperature 35.7 C L Pulse Rate 102 H Respiratory Rate 20 Blood Pressure 132/73 Pulse Oximetry 97 98 100 Oxygen Delivery 08/12/23 14:02 08/12/23 14:16 08/12/23 14:30 Temperature Pulse Rate Respiratory Rate Blood Pressure 133/74 Pulse Oximetry 100 98 100 Oxy
[2023-08-13 10:39] LABS: HIV 1/2 Ab P24 Ag Result Negative (Negative)
[2023-08-13 13:59] LABS: Hepatitis B Surface Antigen Negative (Negative)
[2023-08-13 14:00] VITALS: BP 106/59; PULSE 63; RESP 18; TEMP 36.2; O2SAT 98
[2023-08-13 14:25] LABS: Hepatitis C Virus Antibody Negative (Negative)
[2023-08-13 19:50] VITALS: O2SAT 97
[2023-08-13 22:00] VITALS: BP 109/61; PULSE 66; RESP 14; TEMP 36; O2SAT 98
[2023-08-13] MEDS: ZOLPIDEM TARTRATE (*CRX) 5 MG TABLET 10 MG PO (22:02)
[2023-08-13] MEDS: WATER FOR IRRIGATION, STERILE 1,000 ML BOTTLE 1000 ML (22:08)
[2023-08-14] VITALS (7 sets, daily range): BP systolic 108–124; BP diastolic 65–86; PULSE 73–85; RESP 16–20; TEMP 36.1–36.8; O2SAT 93–98
[2023-08-14] MEDS: ONDANSETRON HCL ODT 4 MG TABLET PO (05:51)
[2023-08-14] MEDS: FLUTICASONE/SALMETEROL 45-21 MCG INHALER 1 PUFF 2 PUFF INHALATION ×2 (07:22→19:25)
[2023-08-14] MEDS: lisinopriL 10 MG TABLET PO (09:25)
[2023-08-14] MEDS: PRAVASTATIN SODIUM 20 MG TABLET PO (09:25)
[2023-08-14] MEDS: ALPRAZolam (*CRX) 0.5 MG TABLET 1 MG PO ×3 (09:25→16:35)
[2023-08-14] MEDS: DULoxetine HCL 30 MG CAPSULE.DR 90 MG PO (09:25)
[2023-08-14] MEDS: hydroCHLOROthiazide 25 MG TABLET PO (09:25)
[2023-08-14] MEDS: oxyCODONE HCL (*CRX) 5 MG TAB IR PO ×2 (09:26→22:01)
[2023-08-14] MEDS: ENOXAPARIN 40 MG/0.4 ML SYRINGE SUB-Q (09:26)
--- NOTE | 2023-08-14 10:04 | WPDURCON ---
Assessment and Plan Assessment and plan (1) UTI (urinary tract infection): Qualifiers: Hematuria presence: with hematuria Urinary tract infection type: site unspecified Qualified Code(s): N39.0 - Urinary tract infection, site not specified; R31.9 - Hematuria, unspecified Code(s): N39.0 - Urinary tract infection, site not specified Status: Acute Assessment and Plan: 67F with recurrent UTI and bladder pain, with one small bubble of gas on CT. - her cultures are negative as she was on outpatient antibiotics prior to admission; if that culture can be obtained, she can probably DC on PO antibiotics. If unable to obtain, would probably treat with 3d of IV antibiotics and then discharge on 10 days of bactrim (allergic to FQ). - she had appointment with Dr Watson tomorrow but will be unable to make that appointment. she needs to reschedule this to work on her recurrent UTI Urology Consult Note HPI Date Seen: 08/14/23 Requesting Physician: Dwayne Wood MD Primary Care Provider: Elyssa Nicole, DIRECTOR OF FINANCIAL REPORTING Consult Narrative Narrative: Jaclyn Combs is a 67 year old female with bladder pain and recurrent UTI. She has had what sounds like a prior prolapse repair and a urologist told her that she has bladder pain syndrome. She thinks she is on detrol. Urgency, dysuria, etc. are primary symptoms. She came in for same. She was started on outpatient PO antibiotics by her PCP a few weeks ago. Cultures here are all negative. CT shows one tiny air bubble in the bladder; rest of the bladder and kidneys looks normal. WBC 7.5, creat 0.6. Urology was consulted yesterday, but I had asked for a call on my cell from the hospitalist to review and was never contacted. Review of Systems Review of Systems: All systems reviewed & are unremarkable except as noted in HPI and below PMFSH Past Medical History Medical History Anxiety Arthritis History of CVA (cerebrovascular accident) History of diverticulitis HTN (hypertension) Hyperlipidemia Obesity MARILEE on CPAP TIA (transient ischemic attack) Surgical History Surgical History H/O repair of rotator cuff tommy History of appendectomy History of left knee replacement History of partial hysterectomy History of total right knee replacement Hx of cholecystectomy S/P tonsillectomy and adenoidectomy Family History Family History Father Aneurysm Heart disease Mother Hypertension Cerebrovascular accident Alzheimer's dementia Sibling Carcinoma of colon 2 brothers Cervical cancer Sister Social History Social History (Updated 02/09/23 @ 14:17 by Christine Mccollum NP) Social History: She 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 Code status full code Smoking packs per day: 2 Smoking cigarettes per day: 40.0 Years smoked: 9 Smoking pack-years: 18.00 Smoking status: Never smoker Tobacco type: cigarettes Second hand tobacco smoke exposure: No Smoking end date: 11/28/74 Alcohol intake: never Substance use: never Substance use type: marijuana Lack of Transportation: No Lack of Food: Sometimes True Current Housing: I Have Housing Concerned About Future Housing: No Difficulty Paying Gas/Electric Bills: No Difficulty Paying for Meds: No Currently Unemployed: No Education: Grade School Difficulty w/ Childcare or Family Care: No Living arrangements: alone Spiritual care concerns: No Meds Home Medications and Allergies Home Medications Medication Instructions Recorded Confirmed Type alprazolam 1 mg tablet 1 mg PO TID 03/09/22 08/12/23 History duloxetine 30 mg capsule,delayed 90 mg PO DAILY 03/09/22 08/12/23 History release lisinopril 10 mg tabl
--- NOTE | 2023-08-14 12:33 | PM.IMPN ---
Progress Note: A&P Assessment and Plan (1) Flank pain: Code(s): R10.9 - Unspecified abdominal pain Status: Acute Assessment and Plan: Suprapubic abdominal pain radiating to the right flank cramping in nature. Gas noted in bladder on CT scan though patient has not undergone instrumentation recently 08/14: imaging reviewed in extensive detail, 1 small air bubble noted in the bladder. Normal bladder wall appearance, no obvious abdominal cavity displacement into visible portion vaginal canal on imaging, no thickening or abscess appearance in this region no ovarian dilation or obvious masses (2) Lower extremity edema: Code(s): R60.0 - Localized edema Status: Acute (3) UTI (urinary tract infection): Qualifiers: Hematuria presence: with hematuria Urinary tract infection type: site unspecified Qualified Code(s): N39.0 - Urinary tract infection, site not specified; R31.9 - Hematuria, unspecified Code(s): N39.0 - Urinary tract infection, site not specified Status: Acute Assessment and Plan: IV Rocephin ordered. UA suggestive of UTI. Urine culture in process. 08/14: IV access had been lost previously and unable to be re-established by multiple attempts by nursing, I established IV access with a 22 gauge in left hand. (4) MARILEE on CPAP: Code(s): G47.33 - Obstructive sleep apnea (adult) (pediatric); Z99.89 - Dependence on other enabling machines and devices Status: Acute (5) HTN (hypertension): Code(s): I10 - Essential (primary) hypertension Status: Acute Assessment and Plan: Stable. Blood pressure reviewed on 08/14 (6) Anxiety: Code(s): F41.9 - Anxiety disorder, unspecified Status: Acute Assessment and Plan: Patient exhibiting high anxiety. She states her mother had Alzheimer's and was complaining of bilateral leg pain then had a major stroke the next day. Since patient's bilateral legs are hurting her she is afraid that she is going to have a stroke. 08/14: anxiety level remains patient upset about encounter with Urology and is wanting to see her primary urologist who comes on service tomorrow. (7) Vaginitis: Code(s): N76.0 - Acute vaginitis Status: Acute Assessment and Plan: Speculum exam performed on 08/14 with GABINO Tuttle present at the bedside. Vaginal discharge noted consistent with bacterial vaginosis. There is discomfort in the vaginal region associated with this discharge. Will initiate treatment with Flagyl. Plan Continue IV antibiotics, obtained consent from patient to reach out to [facility] medical group tomorrow regarding previous urine culture. If unable to receive previous urine culture we will follow Urology recommendation total 3 days IV antibiotics and 10 days of outpatient Bactrim. Time Spent With Patient Time: Inclusive of provider performed IV access and provider performed vaginal speculum exam. Time with patient: Greater than 35 minutes Subjective Date/time seen: 08/14/23 12:33 Interval history: Patient reports that she was seen by Urology this morning and will be seen by her primary urologist tomorrow. She states that she cannot be discharged home at this time. She reports continued lower abdominal pain and vaginal pain with discharge. She is concerned for recurrent prolapse. Patient had prior retro vaginal hernia repair with mesh and thought this could have failed. She is very upset that the urologist did not do a pelvic exam. Review of Systems Review of Systems: All systems reviewed & are unremarkable except as noted in HPI and below Exam Narrative: GENERAL: Appears stated age, alert and oriented with minor memory problems, high anxiety HEENT: Pupils are equally round and briskly reactive to light. Extraocular muscles are intact. Oral mucous membranes are moist without lesions. NECK: The patient has no noted JVD. No adenopathy is appreciated. CHEST/LUNGS: Lungs are
[2023-08-14] MEDS: metroNIDAZOLE 250 MG TABLET 500 MG PO ×2 (14:23→22:01)
[2023-08-14] MEDS: ZOLPIDEM TARTRATE (*CRX) 5 MG TABLET 10 MG PO (22:01)
[2023-08-15] MEDS: metroNIDAZOLE 250 MG TABLET 500 MG PO (05:31)
[2023-08-15 06:00] VITALS: BP 103/59; PULSE 76; RESP 16; TEMP 36; O2SAT 94
[2023-08-15] MEDS: FLUTICASONE/SALMETEROL 45-21 MCG INHALER 1 PUFF 2 PUFF INHALATION (08:11)
[2023-08-15] MEDS: oxyCODONE HCL (*CRX) 5 MG TAB IR PO (09:37)
[2023-08-15] MEDS: ENOXAPARIN 40 MG/0.4 ML SYRINGE SUB-Q (09:38)
[2023-08-15] MEDS: DULoxetine HCL 30 MG CAPSULE.DR 90 MG PO (09:38)
[2023-08-15] MEDS: ONDANSETRON HCL ODT 4 MG TABLET PO (09:38)
[2023-08-15] MEDS: lisinopriL 10 MG TABLET PO (09:39)
[2023-08-15] MEDS: hydroCHLOROthiazide 25 MG TABLET PO (09:39)
[2023-08-15] MEDS: PRAVASTATIN SODIUM 20 MG TABLET PO (09:39)
[2023-08-15] MEDS: ALPRAZolam (*CRX) 0.5 MG TABLET 1 MG PO ×2 (09:39→12:28)
--- NOTE | 2023-08-15 11:42 | PM.DS ---
DS: Admitting Diagnosis Discharge Date 08/15/2023 Admitting Diagnosis Flank pain, lower extremity edema, abdominal pain DS: Discharge Diagnosis Discharge Diagnosis (1) Flank pain: Code(s): R10.9 - Unspecified abdominal pain Status: Acute (2) Lower extremity edema: Code(s): R60.0 - Localized edema Status: Acute (3) UTI (urinary tract infection): Qualifiers: Hematuria presence: with hematuria Urinary tract infection type: site unspecified Qualified Code(s): N39.0 - Urinary tract infection, site not specified; R31.9 - Hematuria, unspecified Code(s): N39.0 - Urinary tract infection, site not specified Status: Acute (4) MARILEE on CPAP: Code(s): G47.33 - Obstructive sleep apnea (adult) (pediatric); Z99.89 - Dependence on other enabling machines and devices Status: Acute (5) HTN (hypertension): Code(s): I10 - Essential (primary) hypertension Status: Acute (6) Anxiety: Code(s): F41.9 - Anxiety disorder, unspecified Status: Acute (7) Vaginitis: Code(s): N76.0 - Acute vaginitis Status: Acute Plan Unable to receive urine culture results despite verifying that they were available at PCP office. We will follow Urology recommendation total 3 days IV antibiotics and 10 days of outpatient Bactrim. DS: Summary Hospital Course Reason for hospitalization: Patient was admitted with flank pain, failure of outpatient UTI treatment with emphysematous UTI and bilateral leg pain swelling. Hospital Course: Patient experienced significantly high anxiety during hospitalization. She was concerned that she had suffered from vaginal prolapse of retro vaginal hernia that was previously repaired with mesh. She thought this might have explained the pain that she was experiencing in her lower abdomen and her right flank. CT scan of the abdomen showed small amount of air in the bladder likely related to recent UTI. UA and urinalysis were grossly unremarkable given that she had been on outpatient antibiotics. We did attempt to contact primary care office to receive results of urine culture but even after verifying that they had a urine culture available we did not receive the results. For this reason we followed recommendations from Urology who saw the patient in consult. We will discharge on Bactrim for 10 days, primarily due to patient's allergy profile with the allergy to levofloxacin and penicillins. She did receive IV Rocephin while in the hospital without any adverse events. Patient had been highly concerned about possible prolapse and Urology did not do a speculum exam so this was performed by the hospitalist showing some vaginal discharge consistent with bacterial vaginosis. For this reason patient was started on Flagyl. She will be discharged with 10 days of Bactrim, 6 days of Flagyl as she has already completed 1 day and few doses of oxycodone. Patient had a urology appointment scheduled initially we were under the impression that that appointment was on 08/16. However, today patient states that the appointment was actually for today and she already canceled it because she thought the urologist would see her in the hospital. I informed her to call the office back let them know the misunderstanding and try to get her 315 appointment reinstated. Status at Discharge Cognitive/behavioral status at discharge: Awake alert and oriented Functional status at discharge: independent ambulation Time Spent with Patient Time attestation: Total time spent providing and/or coordinating discharge services: Time spent: Greater than 30 minutes Exam Narrative: GENERAL: Appears stated age, alert and oriented with minor memory problems, high anxiety HEENT: Pupils are equally round and briskly reactive to light. Extraocular muscles are intact. Oral mucous membranes are moist without lesions. NECK: The patient has no noted JVD. No adenopathy is appreciated. CHEST/LUNGS:
== END 2023-08-15 13:50 | disposition home or self-care (01) | DRG 690 ==
LOC: ANHED 10:54 → ANH3MEDSUR 17:00
PROVIDERS: Preventive Medicine Aerospace Medicine; Student in an Organized Health Care Education/Training Program; Admitting Provider Internal Medicine; Emergency Provider Nurse Practitioner Family; PCP Registered Nurse; Visit Provider Nurse Practitioner
DX: N39.0 Urinary tract infection, site not specified (principal); N76.0 Acute vaginitis; R31.9 Hematuria, unspecified; F41.9 Anxiety disorder, unspecified; I10 Essential (primary) hypertension; E78.5 Hyperlipidemia, unspecified; E66.9 Obesity, unspecified; G47.33 Obstructive sleep apnea (adult) (pediatric); J42 Unspecified chronic bronchitis; M81.0 Age-related osteoporosis without current pathological fracture; R60.0 Localized edema; Z88.0 Allergy status to penicillin; Z68.34 Body mass index [BMI] 34.0-34.9, adult; Z86.73 Personal history of transient ischemic attack (TIA), and cerebral infarction without residual deficits; Z99.89 Dependence on other enabling machines and devices; Z90.49 Acquired absence of other specified parts of digestive tract; Z96.653 Presence of artificial knee joint, bilateral; Z90.710 Acquired absence of both cervix and uterus
CPT/HCPCS: 36415; 71046; 74177; 80048; 80053; 81001; 83605; 83690; 83880; 84484; 85025; 85610; 85730; 86140; 86703; 86803; 87040; 87086; 87088; 87340; 93005; 93970; 94640; 96361; 96365; 96372; 96375; 96376; 99285; A9270; G0378; G0432; J0696; J1650; J2405; J7120; Q9967

== ENCOUNTER 2024-02-15 09:42 | Outpatient (CLI) | payer MEDICARE, SELFPAY ==
--- NOTE | 2024-03-01 14:21 | WPDSLEEPSTUD ---
Sleep Study Date of Study: 02/15/24 Ordering Provider: Elyssa Nicole, GATHERING MACHINE SETTER Interpreting Physician: Mitzi Painter, Sleep Study Type: Split Polysomnogram Height: 1.6 m Weight: 86.183 kg Body Mass Index: 33.6 Neck Circumference (inches): 16 [place]: 19 Reason for Sleep Study Snoring, witnessed apneas Sleep History The patient is a 68-year-old female with hypertension, anxiety, depression, headaches, hyperlipidemia, insomnia, palpitations, spinal stenosis, history of tobacco use and previously diagnosed sleep apnea had a sleep study ordered by her primary care to get new CPAP equipment. The patient frequently awakens at night with heartburn, belching or cough. She frequently snores and is constantly loud enough that others complain. She frequently wakes up gasping for air throughout the night. She frequently has breathing problems at night observed by herself or others. She frequently sweats excessively at night. She frequently has heart palpitations or irregular heartbeats during the night. She constantly falls asleep during the day and occasionally falls asleep while driving. She frequently experiences loss of muscle tone when extremely emotional. She frequently has trouble at school or work due to sleepiness. She occasionally feels unable to move while waking up or falling asleep. He frequently experiences vivid dreamlike scenes upon awakening or falling asleep. She frequently feels afraid of going to sleep. She frequently has nightmares. She denies remembering her dreams. She constantly has thoughts racing through her mind. She constantly feels sad, depressed and anxious. She constantly has muscular tension. She frequently notices parts her body jerk. She constantly kicks during the night. She constantly has crawling and aching feelings in her legs and constantly has leg pain during the night. She denies grinding her teeth during sleep but occasionally awakens with morning jaw pain. She is frequently bothered by pain during the day and constantly awakened by pain during the night. She occasionally wakes up feeling stiff in the morning. She frequently wakes up with sore or achy muscles. She constantly wakes up with pain in the neck, spine and other joints. She goes to bed between 12:21 a.m. on weekdays and between 1-2 a.m. on the weekends. It can take her a minimum of 1 hour to fall asleep. She wakes up 3-4 times throughout the night for unknown reasons and it can take 20 minutes for her to fall back asleep. She wakes up at 5 30 a.m. on both weekdays and weekends. She typically gets 4 hours of sleep per night. She does not stay in bed after waking up in the morning. She currently lives alone. She denies consuming any caffeinated beverages within 2 hours of bedtime. She denies engaging in physical exercise before bedtime. She will watch television before falling asleep. She will take naps in the afternoon but they are not refreshing. She will consume caffeinated beverages throughout the day. She is a former smoker. She denies alcohol and recreational drug use. [facility] Past Medical History Medical History Anxiety Arthritis Diarrhea Epigastric pain History of CVA (cerebrovascular accident) History of diverticulitis HTN (hypertension) Hyperlipidemia Obesity MARILEE on CPAP TIA (transient ischemic attack) Surgical History Surgical History H/O repair of rotator cuff tommy History of appendectomy History of left knee replacement History of partial hysterectomy History of total right knee replacement Hx of cholecystectomy S/P tonsillectomy and adenoidectomy Family History Family History Father Aneurysm Heart disease Mother Hypertension Cerebrovascular accident Alzheimer's dementia Sibling Carcinoma of colon 2 brothers
[2024-03-01 14:37] VITALS: BMI 33.6
== END 2024-02-16 06:49 | disposition home or self-care (01) ==
LOC: ANHCSM 09:44
PROVIDERS: PCP Registered Nurse; Visit Provider Registered Nurse
DX: F51.01 Primary insomnia (principal); I10 Essential (primary) hypertension; G47.33 Obstructive sleep apnea (adult) (pediatric)
CPT/HCPCS: 95811

== ENCOUNTER 2024-02-21 02:16 | Day surgery (SDC) | payer MEDICARE, MEDICAID, SELFPAY ==
[2024-02-10 12:20] VITALS: BMI 33.2
--- NOTE | 2024-02-17 09:23 | SUR.PREOP ---
Patient called regarding upcoming procedure. Reviewed preop instructions, appointment times, and procedure prep.
[2024-02-21 11:35] VITALS: BP 148/76; PULSE 87; RESP 18; TEMP 36.3; O2SAT 100
[2024-02-21] MEDS: LACTATED RINGERS 1,000 ML 150 ML IV CONT (11:45)
--- NOTE | 2024-02-21 12:19 | WPDANESEPPF ---
Anes - Initial Pre Proc Eval Procedure: Operation Date: 02/21/24 12:30 Proposed Procedures p Esophagogastroduodenoscopy - Sean Beck MD Date/Time: 02/21/24 12:19 Surgeon: Sean Beck MD Pre Op Diagnosis: epigastric pain, abdominal distension (gaseous) Patient Data Age: 68 Gender: F Height: 1.6 m Weight: 85.9 kg Last Vital Signs Temp 97.4 F L 02/21/24 11:35 Pulse 87 02/21/24 11:35 Resp 18 02/21/24 11:35 BP 148/76 H 02/21/24 11:35 Pulse Ox 100 02/21/24 11:35 O2 Del Method Room Air 02/21/24 11:35 Allergies Allergy/AdvReac Type Severity Reaction Status Date / Time levofloxacin Allergy Severe Anaphylaxis Verified 02/21/24 11:31 Penicillins Allergy Intermediate Rash Verified 02/21/24 11:31 Home Medications Medication Instructions Recorded Confirmed Type alprazolam 1 mg tablet 1 mg PO TID 03/09/22 02/21/24 History lisinopril 10 mg tablet 10 mg PO DAILY 03/09/22 02/21/24 History pravastatin 10 mg tablet 20 mg PO DAILY 03/09/22 02/21/24 History zolpidem 10 mg tablet 10 mg PO HS PRN Insomnia 03/09/22 02/21/24 History albuterol sulfate 90 mcg/actuation 2 puff inhalation PRN PRN 02/09/23 02/21/24 History aerosol inhaler Shortness Of Breath Or Wheezing gabapentin 100 mg capsule 200 mg PO TID 02/09/23 02/21/24 History ondansetron HCl 4 mg tablet 4 mg PO Q6H PRN Nausea #30 tabs 02/11/23 02/21/24 Rx budesonide-formoterol HFA 80 2 inh inhalation Q12H 08/12/23 02/21/24 History mcg-4.5 mcg/actuation aerosol inhaler (Symbicort) hydrochlorothiazide 25 mg tablet 25 mg PO DAILY 08/12/23 02/21/24 History cholestyramine (with sugar) 4 gram 4 g PO BID 1 month #60 ea 01/24/24 02/21/24 Rx powder for susp in a packet (Questran) duloxetine 60 mg capsule,delayed 120 mg PO DAILY 02/10/24 02/21/24 History release (Cymbalta) tolterodine 4 mg capsule,extended 4 mg PO DAILY 02/10/24 02/21/24 History release 24 hr omeprazole 20 mg capsule,delayed See Rx Instructions .Route 02/21/24 02/21/24 Rx release .COMPLEX #30 caps Patient hx anesthesia problems: none Family hx anesthesia problems: none Results Review: All pre-operative results and documents have been reviewed as part of the pre-operative evaluation. [facility] Past Medical History Medical History (Updated 01/24/24 @ 12:13 by Katharina Jarvis APN-C) Anxiety Arthritis Diarrhea Epigastric pain History of CVA (cerebrovascular accident) History of diverticulitis HTN (hypertension) Hyperlipidemia Obesity MARILEE on CPAP TIA (transient ischemic attack) Surgical History Surgical History H/O repair of rotator cuff tommy History of appendectomy History of left knee replacement History of partial hysterectomy History of total right knee replacement Hx of cholecystectomy S/P tonsillectomy and adenoidectomy Family History Family History Father Aneurysm Heart disease Mother Hypertension Cerebrovascular accident Alzheimer's dementia Sibling Carcinoma of colon 2 brothers Cervical cancer Sister Social History Social History (Updated 02/09/23 @ 14:17 by Christine Mccollum NP) Social History: She 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 Code status full code Smoking packs per day: 2 Smoking cigarettes per day: 40.0 Years smoked: 9 Smoking pack-years: 18.00 Smoking status: Never smoker Tobacco type: cigarettes Second hand tobacco smoke exposure: No Smoking end date: 11/28/74 Alcohol intake: never Substance use: never Substance use type: marijuana Lack of Transportation: No Lack of Food: Sometimes True Current Housing: I Have Housing Concerned About Future Housing: No Difficulty Paying Gas/Electric Bills: No Difficulty Paying for Meds: No Currently Unemployed: No [facility]
--- NOTE | 2024-02-21 12:42 | WPDHPUPDATE1 ---
History and Physical Update Update Date/Time: 02/21/24 12:42 History and Physical has been reviewed, including an updated exam of the patient. There are NO changes in the patient's condition. Risks, benefits, and alternatives have been discussed and questions answered. Patient agrees to proceed with procedure.
[2024-02-21 12:53] VITALS: BP 158/68; PULSE 98; RESP 20; O2SAT 92
[2024-02-21 13:03] VITALS: BP 147/64; PULSE 85; RESP 22; O2SAT 94
[2024-02-21 13:09] VITALS: BP 121/79; PULSE 99; RESP 21; O2SAT 98
== END 2024-02-21 13:26 | disposition home or self-care (01) ==
PROVIDERS: PCP Registered Nurse; Visit Provider Internal Medicine Gastroenterology
PROC: 0DJ08ZZ Inspection of Upper Intestinal Tract, Via Natural or Artificial Opening Endoscopic (ICD-10-PCS; CPT 43235; principal; 2024-02-21 12:30)
DX: K44.9 Diaphragmatic hernia without obstruction or gangrene (principal); I10 Essential (primary) hypertension; E78.5 Hyperlipidemia, unspecified; G47.33 Obstructive sleep apnea (adult) (pediatric); Z86.73 Personal history of transient ischemic attack (TIA), and cerebral infarction without residual deficits; E66.9 Obesity, unspecified; Z68.33 Body mass index [BMI] 33.0-33.9, adult; Z79.51 Long term (current) use of inhaled steroids
CPT/HCPCS: 43239; 88305; J2704; J7120

== ENCOUNTER 2024-03-12 10:40 | Outpatient (CLI) | payer MEDICARE, SELFPAY ==
[2024-03-12 12:13] LABS: Toxigenic C. Diff NEGATIVE (NEGATIVE)
[2024-03-16 15:29] LABS: Calprotectin, Stool 16 mcg/g
== END 2024-03-12 10:41 | disposition home or self-care (01) ==
LOC: ANHLAB 10:41
PROVIDERS: PCP Registered Nurse; Visit Provider Nurse Practitioner Family
DX: R19.7 Diarrhea, unspecified (principal)
CPT/HCPCS: 83993; 87045; 87177; 87209; 87427; 87449; 87493

== ENCOUNTER 2024-08-09 09:50 | Outpatient (CLI) | payer MEDICARE, MEDICAID, SELFPAY ==
--- NOTE | ~2024-08-09 | MR_ITS ---
EXAMINATION: MR cervical spine wo con DATE: 08/09/2024 10:29 INDICATION: Spinal stenosis. TECHNIQUE: Magnetic resonance imaging (MRI) of the cervical spine was performed without intravenous c ontrast. COMPARISON: None FINDINGS: There is 2 mm anterolisthesis of C4 on C5 and C7 on T1. Vertebral body heights are normal. There is mildly decreased disc height at C4-C5, severely decreased disc height at C5-C6 and C6-C7, an d mildly decreased disc height at C7-T1. The spinal cord signal intensity is normal. The following di sc levels are specifically discussed: C2-C3: The disc does not extend beyond the endplate margin. There is no uncovertebral joint osteoarth ritis. There is severe bilateral facet joint osteoarthritis. There is mild right and moderate left ne ural foraminal stenosis. There is no central canal stenosis. C3-C4: The disc does not extend beyond the endplate margin. There is moderate uncovertebral joint ost eoarthritis. There is severe bilateral facet joint osteoarthritis. There is mild bilateral neural for aminal stenosis. There is no central canal stenosis. C4-C5: There is a central protrusion. There is severe bilateral uncovertebral joint osteoarthritis. T here is severe bilateral facet joint osteoarthritis. There is moderate right and mild left neural for aminal stenosis. There is mild central canal stenosis with ventral indentation of the spinal cord. C5-C6: The disc is bulging. There is severe bilateral uncovertebral joint osteoarthritis. There is se freddy bilateral facet joint osteoarthritis. There is mild bilateral neural foraminal stenosis. There i s mild central canal stenosis with ventral indentation of the spinal cord. C6-C7: The disc is bulging. There is severe bilateral uncovertebral joint osteoarthritis. There is se freddy bilateral facet joint osteoarthritis. There is mild bilateral neural foraminal stenosis. There i s mild central canal stenosis with ventral indentation of the spinal cord. C7-T1: The disc does not extend beyond the endplate margin. There is no uncovertebral joint osteoarth ritis. There is severe bilateral facet joint osteoarthritis. There is mild bilateral neural foraminal stenosis. There is no central canal stenosis. IMPRESSION: 1. Severe cervical spondylosis. Reviewed, dictated and finalized at location A.
== END 2024-08-09 09:51 | disposition home or self-care (01) ==
LOC: ANHIMG 09:54
PROVIDERS: PCP Registered Nurse; Visit Provider Psychiatry & Neurology Neurology
DX: M48.061 Spinal stenosis, lumbar region without neurogenic claudication (principal); M51.36 Other intervertebral disc degeneration, lumbar region; M47.892 Other spondylosis, cervical region
CPT/HCPCS: 72141

== ENCOUNTER 2024-08-22 15:10 | Outpatient (CLI) | payer MEDICARE, MEDICAID, SELFPAY ==
--- NOTE | ~2024-08-22 | MR_ITS ---
EXAMINATION: MR lumbar spine wo con DATE: 08/22/2024 15:49 INDICATION: SPINAL STENOSIS OF LUMBAR REGION . TECHNIQUE: Magnetic resonance imaging (MRI) of the lumbar spine was performed without intravenous con trast. Sequences included sagittal T2-weighted FSE, sagittal T2-weighted FS FSE, sagittal T1-weighted FSE, and axial T2-weighted FSE. COMPARISON: 04/25/2022 FINDINGS: The last fully formed and hydrated disc is designated L5-S1. The marrow signal is benign an d homogenous. Conus terminates at L1. Mild grade 1 retrolistheses at L2-3 and L3-4. Mild grade 1 ante rolisthesis at L4-5. Multilevel loss of disc height and hydration. The following disc levels are spec ifically discussed: T11-T12: The disc does not extend beyond the endplate margin. There is no facet joint osteoarthritis. There is no neural foraminal stenosis. There is no central canal stenosis. T12-L1: Minimal disc bulge. There is no facet joint osteoarthritis. There is no neural foraminal sten osis. There is no central canal stenosis. L1-L2: Moderate disc bulge with a broad-based, mild right lateral protrusion. There is moderate facet joint osteoarthritis. There is no neural foraminal stenosis. There is mild central canal stenosis. L2-L3: Moderate diffuse disc bulge. There is moderate facet joint osteoarthritis. There is mild bilat eral inferior neural foraminal stenosis. There is mild central canal stenosis. L3-L4: Moderate diffuse bulge with a superimposed left subarticular/lateral protrusion. There is richie re facet joint osteoarthritis. There is mild right and severe left neural foraminal stenosis. There i s mild central canal stenosis. L4-L5: Moderate diffuse bulge. There is severe facet joint osteoarthritis. There is mild bilateral ne ural foraminal stenosis. There is mild central canal stenosis. L5-S1: Mild diffuse disc bulge. There is severe facet joint osteoarthritis. There is mild bilateral n eural foraminal stenosis. There is mild central canal stenosis. IMPRESSION: Multilevel mild grade 1 listheses. Multilevel moderate degenerative disc disease. Multilevel severe facet arthropathy. Moderate right and severe left neural foraminal stenosis secondary to degenerative disc and facet dori nges at L3-4. Multilevel mild central canal stenosis. Reviewed, dictated and finalized at location K. IMPRESSION: Multilevel mild grade 1 listheses. Multilevel moderate degenerative disc disease. Multilevel severe facet arthropathy. Moderate right and severe left neural foraminal stenosis secondary to degenerat rony disc and facet changes at L3-4. Multilevel mild central canal stenosis.
== END 2024-08-22 15:11 | disposition home or self-care (01) ==
PROVIDERS: PCP Registered Nurse; Visit Provider Psychiatry & Neurology Neurology
DX: M48.061 Spinal stenosis, lumbar region without neurogenic claudication (principal); M51.36 Other intervertebral disc degeneration, lumbar region
CPT/HCPCS: 72148